=== PATIENT | male | born 1990 | race Caucasian/White ===

== ENCOUNTER 2016-08-03 21:31 | Emergency (ER) | payer OTHER ==
[2016-08-03] MEDS ORDERED: BUPIVACAIN-EPI 0.5%-1:200,000 30 ML VIAL SQ STA (21:34)
--- NOTE | 2016-08-03 21:36 | ED ---
ENT HPI - General Stated complaint: dental pain Time Seen by Provider: 08/03/16 21:31 Source: patient, EMS, RN notes reviewed Mode of arrival: EMS Limitations: no limitations - History of Present Illness Initial comments: 25-year-old male present emergency department via EMS for dental pain. Patient seen in emergency department 2 days ago for similar symptoms. Patient is stating that he cannot tolerate the pain last 3 hours. Patient was brought by EMS and which he was smoking a cigarette prior to being transported. Patient denies any fevers or chills. Patient states she's been taken without codeine with no relief. Patient has appointment on Thursday. No other complaints. No fevers no chills no trismus. - Related Data Home Medications Medication Instructions Recorded Confirmed Albuterol Inhaler [Ventolin Hfa 1 - 2 puff INHALATION RT-Q6H PRN 07/31/16 Inhaler] Budesonide/Formoterol Fumarate 2 puff INHALATION RT-BID 07/31/16 07/31/16 [Symbicort 160-4.5 Mcg Inhaler] Previous Rx's Medication Instructions Recorded Acetaminophen-Codeine 300-30mg 1 tab PO Q4H PRN #20 tablet 07/31/16 [Tylenol #3] Penicillin V Potassium [Pen Vee K] 500 mg PO QID #40 tab 07/31/16 Hydrocodone/Acetaminophen [[place] 1 tab PO Q6HR PRN #10 tab 08/03/16 5-325] Allergies Allergy/AdvReac Type Severity Reaction Status Date / Time blue dye Allergy Anaphylaxis Verified 08/03/16 21:38 ibuprofen [From Motrin] Allergy Unknown Verified 08/03/16 21:38 Review of Systems ROS Statement: Those systems with pertinent positive or pertinent negative responses have been documented in the HPI. ROS Other: All systems not noted in ROS Statement are negative. Past Medical History Past Medical History: Asthma, COPD, Seizure Disorder Additional Past Medical History / Comment(s): Degenerative Disk, uses a walker r /t back History of Any Multi-Drug Resistant Organisms: None Reported Past Surgical History: Orthopedic Surgery Past Psychological History: ADD/ADHD, Anxiety, Depression Smoking Status: Current every day smoker Past Alcohol Use History: None Reported Past Drug Use History: None Reported General Exam General appearance: alert, in no apparent distress Head exam: Present: atraumatic, normocephalic, normal inspection Eye exam: Present: normal appearance, PERRL, EOMI. Absent: scleral icterus, conjunctival injection, periorbital swelling ENT exam: Present: mucous membranes moist. Absent: normal oropharynx (Poor dentition edentulous, dental fracture #17) Neck exam: Present: normal inspection, full ROM. Absent: tenderness, meningismus, lymphadenopathy Respiratory exam: Present: normal lung sounds bilaterally. Absent: respiratory distress, wheezes, rales, rhonchi, stridor Cardiovascular Exam: Present: regular rate, normal rhythm, normal heart sounds. Absent: systolic murmur, diastolic murmur, rubs, gallop, clicks Course Vital Signs 08/03/16 21:36 Temperature 98.2 F Pulse Rate 72 Respiratory 18 Rate Blood Pressure 118/89 O2 Sat by Pulse 97 Oximetry Procedures - Procedures Initial comment: Dental block procedure left inferior alveolar block 2ml of 0.5% Marcaine with epinephrine was used to anesthetize area patient tolerated well no compilations Disposition Clinical Impression: Pain, dental, Dental caries Disposition: HOME SELF-CARE Condition: Stable Instructions: Toothache (ED) Additional Instructions: Please return to the Emergency Department if symptoms worsen or any other concerns. Prescriptions: Hydrocodone/Acetaminophen [[place] 5-325] 1 tab PO Q6HR PRN #10 tab PRN Reason: Pain Referrals: None,Stated [Primary Care Provider] - 1-2 days Time of Disposition: 21:56
[2016-08-03 21:38] VITALS: BP 118/89; PULSE 72; RESP 18; TEMP 98.2
[2016-08-03] MEDS ORDERED: HYDROcodone/APAP 5-325MG 1 EACH TAB PO STA (21:55)
== END 2016-08-03 22:32 | disposition home or self-care (01) ==
LOC: EC 21:31
DX: K02.9 Dental caries, unspecified (principal); J45.909 Unspecified asthma, uncomplicated; J44.9 Chronic obstructive pulmonary disease, unspecified; F17.200 Nicotine dependence, unspecified, uncomplicated; Z88.6 Allergy status to analgesic agent; Z91.048 Other nonmedicinal substance allergy status; Z79.899 Other long term (current) drug therapy
CPT/HCPCS: 64400; 99283

== ENCOUNTER 2016-10-12 13:47 | Emergency (ER) | payer OTHER ==
[2016-10-12 14:04] VITALS: BP 118/70; PULSE 98; RESP 18; TEMP 99.1
--- NOTE | 2016-10-12 14:18 | ED ---
ENT HPI - General Chief complaint: Dental/Oral Stated complaint: dental pain Time Seen by Provider: 10/12/16 14:06 Source: patient Mode of arrival: ambulatory - History of Present Illness Initial comments: 35-year-old male patient presents for complaints of right lower dental pain. Patient states that the tooth started bothering him 2 days ago. Patient does have extensive periodontal disease and did recently have numerous tooth extractions. Patient states that the pain is severe, makes it difficult to eat or drink, and makes it difficult to sleep. Patient has tried to take Tylenol but states that it does not work. Patient is ALLERGIC to ibuprofen. Denies any swelling to his face, swelling to his gums, fever, or chills. Patient denies any chest pain, back pain, shortness of breath, abdominal pain, nausea, vomiting, dizziness, weakness, constipation, diarrhea, or urinary symptoms. - Related Data Home Medications Medication Instructions Recorded Confirmed Albuterol Inhaler [Ventolin Hfa 1 - 2 puff INHALATION RT-Q6H PRN 07/31/16 Inhaler] Budesonide/Formoterol Fumarate 2 puff INHALATION RT-BID 07/31/16 08/03/16 [Symbicort 160-4.5 Mcg Inhaler] carBAMazepine [TEGretol] 200 mg PO DAILY 10/12/16 10/12/16 Previous Rx's Medication Instructions Recorded Hydrocodone/Acetaminophen [[place] 1 tab PO Q6HR PRN #15 tab 10/12/16 5-325] Penicillin V Potassium [Pen Vee K] 500 mg PO QID #40 tab 10/12/16 Allergies Allergy/AdvReac Type Severity Reaction Status Date / Time blue dye Allergy Anaphylaxis Verified 10/12/16 14:04 ibuprofen [From Motrin] Allergy Unknown Verified 10/12/16 14:04 Review of Systems ROS Statement: Those systems with pertinent positive or pertinent negative responses have been documented in the HPI. ROS Other: All systems not noted in ROS Statement are negative. Past Medical History Past Medical History: Asthma, COPD, Seizure Disorder Additional Past Medical History / Comment(s): Degenerative Disk, uses a walker r /t back History of Any Multi-Drug Resistant Organisms: None Reported Past Surgical History: Orthopedic Surgery Past Psychological History: ADD/ADHD, Anxiety, Depression Smoking Status: Current every day smoker Past Alcohol Use History: None Reported Past Drug Use History: None Reported General Exam Limitations: no limitations General appearance: alert, in no apparent distress Head exam: Present: atraumatic, normocephalic Eye exam: Present: normal appearance, PERRL, EOMI. Absent: scleral icterus, conjunctival injection, nystagmus, periorbital swelling Pupils: Present: normal accommodation ENT exam: Present: normal exam, normal oropharynx, mucous membranes moist, TM's normal bilaterally. Absent: mucous membranes dry Expanded Ear exam: Present: normal external inspection Teeth exam: Present: dental caries, dental tenderness # (32). Absent: fractured tooth #, gingival enlargement Neck exam: Present: normal inspection, full ROM. Absent: tenderness, meningismus, lymphadenopathy, thyromegaly Respiratory exam: Present: normal lung sounds bilaterally. Absent: respiratory distress, wheezes, rales, rhonchi, stridor Cardiovascular Exam: Present: regular rate, normal rhythm, normal heart sounds. Absent: bradycardia, tachycardia, irregular rhythm, systolic murmur, diastolic murmur, rubs, gallop, clicks GI/Abdominal exam: Present: soft, normal bowel sounds. Absent: distended, tenderness, guarding, rebound, rigid, diminished bowel sounds, hyperactive bowel sounds, hypoactive bowel sounds Neurological exam: Present: alert, oriented X3, CN II-XII intact Psychiatric exam: Present: normal affect, normal mood Skin exam: Present: warm, dry, intact Course Vital Signs 10/12/16 14:02 Temperature 99.1 F Pulse Rate 98 Respiratory 18 Rate Blood Pressure 118/70 O2 Sat by Pulse 98 Oximetry Medical Decision Making - Medical Decision Making 25-year-old male patient presents to emergency department today for complaints of right lower dental pain. Physical exam revealed extensive periodontal disease with dental caries to tooth #32. She'll be discharged home with a prescription for penicillin and [place] for pain control. Patient instructed to call dentist in the morning to make an appointment. Patient instructed to return for any new, worsening, or concerning symptoms. Patient verbalizes understanding and agrees with this plan. Disposition Clinical Impression: Pain, dental, Dental caries Disposition: HOME SELF-CARE Condition: Stable Instructions: Dental Caries (ED), Toothache (ED) Additional Instructions: Make a dentist appointment Thursday morning. Utilize pain medication prescription for severe pain. Return for any new, worsening, or concerning symptoms. Prescriptions: Hydrocodone/Acetaminophen [[place] 5-325] 1 tab PO Q6HR PRN #15 tab PRN Reason: Pain Penicillin V Potassium [Pen Vee K] 500 mg PO QID #40 tab Referrals: None,Stated [Primary Care Provider] - 1-2 days Time of Disposition: 14:20
== END 2016-10-12 14:40 | disposition home or self-care (01) ==
LOC: EC 13:47
DX: K02.9 Dental caries, unspecified (principal); J45.909 Unspecified asthma, uncomplicated; J44.9 Chronic obstructive pulmonary disease, unspecified; G40.909 Epilepsy, unspecified, not intractable, without status epilepticus; F41.9 Anxiety disorder, unspecified; F32.9 Major depressive disorder, single episode, unspecified; F17.200 Nicotine dependence, unspecified, uncomplicated; Z79.51 Long term (current) use of inhaled steroids; Z79.899 Other long term (current) drug therapy; Z91.048 Other nonmedicinal substance allergy status; Z88.6 Allergy status to analgesic agent
CPT/HCPCS: 99282

== ENCOUNTER 2016-12-03 23:49 | Emergency (ER) | payer OTHER ==
[2016-12-03 23:55] VITALS: BP 117/81; PULSE 85; RESP 16; TEMP 98.4
[2016-12-04] MEDS ORDERED: KETOROLAC 60 MG/2 ML VIAL IM STA (00:27)
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
[2016-12-04] MEDS ORDERED: CYCLOBENZAPRINE 10MG STARTER 3 TAB BTL PO STA (00:52)
--- NOTE | 2016-12-04 00:56 | XR ---
Exam: XR LEFT SHOULDER History: Pain. Comparison: 12/24/15. Technique: 3 views. Findings: No definite evidence for acute displaced fracture or dislocation. Question slight contour irregularity of the greater tuberosity on external rotation, similar to before. May be due to remote injury. Correlate for prior trauma. No significant arthritic or erosive changes. No soft tissue calcification. No aggressive appearing processes. Impression: No significant change.
== END 2016-12-04 01:03 | disposition home or self-care (01) ==
LOC: EC 23:49
DX: M25.512 Pain in left shoulder (principal); J45.909 Unspecified asthma, uncomplicated; J44.9 Chronic obstructive pulmonary disease, unspecified; G40.909 Epilepsy, unspecified, not intractable, without status epilepticus; F17.200 Nicotine dependence, unspecified, uncomplicated; Z79.51 Long term (current) use of inhaled steroids; Z79.899 Other long term (current) drug therapy; Z88.6 Allergy status to analgesic agent; Z91.09 Other allergy status, other than to drugs and biological substances; Z98.890 Other specified postprocedural states
CPT/HCPCS: 73030; 99283; 96372; J1885

== ENCOUNTER 2016-12-23 21:16 | Emergency (ER) | payer OTHER ==
[2016-12-23] MEDS ORDERED: ACETAMINOPHEN TAB 500 MG TAB PO STA (21:46)
--- NOTE | 2016-12-23 21:51 | ED ---
Upper Extremity HPI - General Chief Complaint: Extremity Injury, Upper Stated Complaint: left wrist injury Time Seen by Provider: 12/23/16 21:38 Source: patient, RN notes reviewed Mode of arrival: ambulatory Limitations: no limitations - History of Present Illness Initial Comments: Patient is a 26-year-old male presents to the emergency room for evaluation of left wrist pain. Patient states 2 nights ago he fell into a glass table and injured his hand/wrist. Patient states he's having pain at his distal radial area and over his thumb. Patient states it hurts to move his thumb. Patient states that it hurts move his wrist. Patient states he has broken the same wrist in the past. Patient denies any other injuries during incident. Patient states he has not been taking anything at home for pain. Place: home - Related Data Home Medications Medication Instructions Recorded Confirmed Albuterol Inhaler [Ventolin Hfa 1 - 2 puff INHALATION RT-Q6H PRN 07/31/16 Inhaler] Budesonide/Formoterol Fumarate 2 puff INHALATION RT-BID 07/31/16 10/12/16 [Symbicort 160-4.5 Mcg Inhaler] carBAMazepine [TEGretol] 200 mg PO DAILY 10/12/16 10/12/16 Previous Rx's Medication Instructions Recorded Hydrocodone/Acetaminophen [[place] 1 tab PO Q6HR PRN #15 tab 10/12/16 5-325] Penicillin V Potassium [Pen Vee K] 500 mg PO QID #40 tab 10/12/16 Cyclobenzaprine [Flexeril] 10 mg PO TID #20 tab 12/04/16 Acetaminophen with Codeine 1 tab PO Q4H PRN #12 tab 12/23/16 [Tylenol w/codeine #3] Allergies Allergy/AdvReac Type Severity Reaction Status Date / Time blue dye Allergy Anaphylaxis Verified 12/23/16 21:44 ibuprofen [From Motrin] Allergy Unknown Verified 12/23/16 21:44 Review of Systems ROS Statement: Those systems with pertinent positive or pertinent negative responses have been documented in the HPI. ROS Other: All systems not noted in ROS Statement are negative. Past Medical History Past Medical History: Asthma, COPD, Seizure Disorder Additional Past Medical History / Comment(s): Degenerative Disk, uses a walker r /t back History of Any Multi-Drug Resistant Organisms: None Reported Past Surgical History: Orthopedic Surgery Past Psychological History: ADD/ADHD, Anxiety, Depression Smoking Status: Current every day smoker Past Alcohol Use History: None Reported Past Drug Use History: None Reported General Exam - General Exam Comments Initial Comments: Sitting in exam room, no acute distress. Limitations: no limitations General appearance: alert, in no apparent distress Head exam: Present: atraumatic, normocephalic, normal inspection Eye exam: Present: normal appearance ENT exam: Present: normal exam Neck exam: Present: normal inspection Respiratory exam: Absent: respiratory distress Left Forearm Wrist exam: Present: tenderness (Tenderness on palpating over her distal radius), tenderness over anatomical snuff box. Absent: full ROM Hand Wrist exam: Present: tenderness (Tenderness on palpating over first metacarpal and base of thumb). Absent: full ROM Neuro motor exam: Present: thumb IP flexion intact, thumb adduction intact Vascular: Present: normal capillary refill (Capillary refill less than 2 seconds ), radial pulse (2+), ulnar pulse (2+) Back exam: Present: normal inspection Neurological exam: Present: alert, oriented X3, CN II-XII intact, normal gait Psychiatric exam: Present: normal affect, normal mood Skin exam: Present: warm, dry, intact, normal color. Absent: rash Course Vital Signs 12/23/16 12/23/16 21:41 22:28 Temperature 98.1 F 97.4 F L Pulse Rate 67 68 Respiratory 18 20 Rate Blood Pressure 123/79 124/78 O2 Sat by Pulse 98 99 Oximetry Procedures - Orthopedic Splinting/Casting Injury #1 Side: left Upper Extremity Injury Location: hand Upper Extremity Immobilizer: thumb spica (Short arm OCL thumb spica splint placed. 2 x 10". Neurovascular function assessed and intact.) Medical Decision Making - Medical Decision Making Patient is a 26-year-old male presents emergency room for evaluation of left wrist/hand pain. Left wrist/hand x-rays negative for any acute fractures or dislocations. Patient is having significant tenderness over the anatomical snuffbox. Patient placed in a thumb spica splint and advised to follow-up with transcription specialist for further evaluation. Patient states he understands everything that was discussed with him. Return parameters discussed. Case discussed with Dr. Celestin. - Radiology Data Radiology results: report reviewed, image reviewed Disposition Clinical Impression: Sprain of left hand Disposition: HOME SELF-CARE Condition: Good Instructions: Wrist Injury (ED), Suspected Fracture (ED) Additional Instructions: Do not get splint wet. Do not remove splint until follow-up with transcription specialist. Please follow-up with transcription specialist in 24-48 hours for reevaluation. If any new symptom arises or symptoms worsen, return to ER as soon as possible. Prescriptions: Acetaminophen with Codeine [Tylenol w/codeine #3] 1 tab PO Q4H PRN #12 tab PRN Reason: Pain Referrals: Yakov Srinivasan MD [REFERRING] - 1-2 days El Hernandez DO [Doctor of Osteopathic Medicine] - 1-2 days Time of Disposition: 22:12
--- NOTE | 2016-12-23 22:00 | XR ---
EXAMINATION TYPE: XR hand complete LT DATE OF EXAM: 12/23/2016 9:55 PM COMPARISON: NONE HISTORY: Pain TECHNIQUE: 3 views FINDINGS: I see no fracture nor dislocation. Metacarpals appear intact. Joint spaces appear normal. IMPRESSION: Negative left hand exam
--- NOTE | 2016-12-23 22:01 | XR ---
EXAMINATION TYPE: XR wrist complete LT DATE OF EXAM: 12/23/2016 9:55 PM COMPARISON: NONE HISTORY: Pain TECHNIQUE: 4 views FINDINGS: I see no fracture nor dislocation. Joint spaces are normal. Soft tissues appear normal. IMPRESSION: Normal left wrist
[2016-12-23 22:31] VITALS: BP 124/78; PULSE 68; RESP 20; TEMP 97.4
== END 2016-12-23 22:31 | disposition home or self-care (01) ==
LOC: EC 21:16
DX: S63.92XA Sprain of unspecified part of left wrist and hand, initial encounter (principal); J45.909 Unspecified asthma, uncomplicated; J44.9 Chronic obstructive pulmonary disease, unspecified; F17.200 Nicotine dependence, unspecified, uncomplicated; Z88.6 Allergy status to analgesic agent; Z91.048 Other nonmedicinal substance allergy status; Z79.899 Other long term (current) drug therapy; Z79.51 Long term (current) use of inhaled steroids; W19.XXXA Unspecified fall, initial encounter
CPT/HCPCS: 29125; 99283

== ENCOUNTER 2017-01-18 12:39 | Emergency (ER) | payer OTHER ==
[2017-01-18 12:47] VITALS: BP 137/74; PULSE 90; RESP 20; TEMP 98.8
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
[2017-01-18] MEDS ORDERED: ACET/COD 300 MG/30 MG STARTER PACK 6 TAB BTL PO STA (13:50)
[2017-01-18] MEDS ORDERED: Acetaminophen-Codeine 300-30mg TAB PO STA (14:51)
== END 2017-01-18 15:30 | disposition home or self-care (01) ==
LOC: EC 12:39
DX: S91.201A Unspecified open wound of right great toe with damage to nail, initial encounter (principal); G40.909 Epilepsy, unspecified, not intractable, without status epilepticus; F17.200 Nicotine dependence, unspecified, uncomplicated; Z79.899 Other long term (current) drug therapy; Z88.6 Allergy status to analgesic agent; Z91.09 Other allergy status, other than to drugs and biological substances; X58.XXXA Exposure to other specified factors, initial encounter; Y93.84 Activity, sleeping
CPT/HCPCS: 11730; 99283

== ENCOUNTER 2017-02-22 15:41 | Emergency (ER) | payer OTHER ==
[2017-02-22 16:13] VITALS: BP 115/76; PULSE 63; RESP 18; TEMP 99.4
--- NOTE | 2017-02-22 16:26 | ED ---
ENT HPI - General Chief complaint: Dental/Oral Stated complaint: right side dental pain Time Seen by Provider: 02/22/17 16:15 Source: patient, RN notes reviewed, old records reviewed Mode of arrival: ambulatory Limitations: no limitations - History of Present Illness Initial comments: 26-year-old male presents emergency room chief complaint of lower right dental pain for the past 3 days. He reports he's been told she's had an abscess and poor dentition before. He states that he has had a fever last night. Denies any recent antibiotic use but was seen in the emergency department month ago. Patient reports that he is ALLERGIC to Motrin as it causes him to have stomach issues and he has an ulcer. He denies any neck pain or ear pain. He reports that he has had no chest pain or shortness of breath or any other symptoms. Patient states he had have dental work done over the left lower teeth and plans to follow-up to have his right lower tooth completed as well. - Related Data Home Medications Medication Instructions Recorded Confirmed carBAMazepine [TEGretol] 200 mg PO BID 10/12/16 01/18/17 Previous Rx's Medication Instructions Recorded Acetaminophen-Codeine 300-30mg 1 tab PO Q6H PRN #15 tablet 02/22/17 [Tylenol #3] Penicillin V Potassium [Pen Vee K] 500 mg PO QID #40 tab 02/22/17 Allergies Allergy/AdvReac Type Severity Reaction Status Date / Time blue dye Allergy Anaphylaxis Verified 02/22/17 16:13 ibuprofen [From Motrin] Allergy Unknown Verified 02/22/17 16:13 Review of Systems ROS Statement: Those systems with pertinent positive or pertinent negative responses have been documented in the HPI. ROS Other: All systems not noted in ROS Statement are negative. Past Medical History Past Medical History: Asthma, COPD, Seizure Disorder Additional Past Medical History / Comment(s): Degenerative Disk, uses a walker r /t back History of Any Multi-Drug Resistant Organisms: None Reported Past Surgical History: Orthopedic Surgery Additional Past Surgical History / Comment(s): knee Past Psychological History: ADD/ADHD, Anxiety, Depression Smoking Status: Current every day smoker Past Alcohol Use History: None Reported Past Drug Use History: None Reported General Exam - General Exam Comments Initial Comments: 26-year-old male. No acute distress. Limitations: no limitations General appearance: alert, in no apparent distress Head exam: Present: atraumatic, normocephalic, normal inspection Eye exam: Present: normal appearance, PERRL, EOMI. Absent: scleral icterus, conjunctival injection, periorbital swelling ENT exam: Present: normal exam, mucous membranes moist. Absent: normal oropharynx (Patient has poor dentition. Evidence of teeth 19 317 are removed. Patient has multiple dental caries and erythema around tooth #31 with gum swelling. No pus noted.) Neck exam: Present: normal inspection. Absent: tenderness, meningismus, lymphadenopathy Respiratory exam: Present: normal lung sounds bilaterally. Absent: respiratory distress, wheezes, rales, rhonchi, stridor Cardiovascular Exam: Present: regular rate, normal rhythm, normal heart sounds. Absent: systolic murmur, diastolic murmur, rubs, gallop, clicks GI/Abdominal exam: Present: soft, normal bowel sounds. Absent: distended, tenderness, guarding, rebound, rigid Extremities exam: Present: normal inspection, full ROM, normal capillary refill. Absent: tenderness, pedal edema, joint swelling, calf tenderness Back exam: Present: normal inspection Neurological exam: Present: alert, oriented X3, CN II-XII intact Psychiatric exam: Present: normal affect, normal mood Skin exam: Present: warm, dry, intact, normal color. Absent: rash Course Vital Signs 02/22/17 16:10 Temperature 99.4 F Pulse Rate 63 Respiratory 18 Rate Blood Pressure 115/76 O2 Sat by Pulse 98 Oximetry Medical Decision Making - Medical Decision Making 26-year-old male presents emergency room chief complaint of lower right dental pain for the past 3 days. He reports he's been told she's had an abscess and poor dentition before. He states that he has had a fever last night. Denies any recent antibiotic use but was seen in the emergency department month ago. Patient reports that he is ALLERGIC to Motrin as it causes him to have stomach issues and he has an ulcer. He denies any neck pain or ear pain. He reports that he has had no chest pain or shortness of breath or any other symptoms. Patient does have significant erythema and dental caries around tooth #31. Discussed that he needs follow-up with dentist have it removed. Discussed taking Tylenol for pain. Patient will be discharged with Pen-Vee K and prescription for short course of pain medicine. Patient agrees to treatment plan will comply. Return parameters were discussed. Disposition Clinical Impression: Pain due to dental caries Disposition: HOME SELF-CARE Condition: Good Instructions: Dental Caries (ED) Additional Instructions: [facility] [email or web address], [place] [address] [phone] (existing clients only) For new clients: [phone] 1st consult: $50 (includes Xrays) Usually 30% less then private dentist for visits after. [employer] Have to pay $50 for Xrays anmd rest is covered. [phone] Prescriptions: Acetaminophen-Codeine 300-30mg [Tylenol #3] 1 tab PO Q6H PRN #15 tablet PRN Reason: Pain Penicillin V Potassium [Pen Vee K] 500 mg PO QID #40 tab Referrals: None,Stated [Primary Care Provider] - 1-2 days Time of Disposition: 16:25
== END 2017-02-22 16:48 | disposition home or self-care (01) ==
LOC: EC 15:41
DX: K02.9 Dental caries, unspecified (principal); G40.909 Epilepsy, unspecified, not intractable, without status epilepticus; F17.200 Nicotine dependence, unspecified, uncomplicated; Z88.6 Allergy status to analgesic agent; Z91.048 Other nonmedicinal substance allergy status; Z79.899 Other long term (current) drug therapy
CPT/HCPCS: 99283

== ENCOUNTER 2017-03-11 19:11 | Emergency (ER) | payer OTHER ==
[2017-03-11] MEDS ORDERED: HYDROcodone/APAP 5-325MG 1 EACH TAB PO STA (19:33)
[2017-03-11] MEDS ORDERED: METHOCARBAMOL 500 MG TAB PO STA (19:33)
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
[2017-03-11 20:56] VITALS: BP 132/88; PULSE 64; RESP 18; TEMP 98.9
== END 2017-03-11 20:54 | disposition home or self-care (01) ==
LOC: EC 19:11
DX: M62.838 Other muscle spasm (principal); G40.909 Epilepsy, unspecified, not intractable, without status epilepticus; F17.200 Nicotine dependence, unspecified, uncomplicated; Z79.899 Other long term (current) drug therapy; Z88.6 Allergy status to analgesic agent; Z91.048 Other nonmedicinal substance allergy status
CPT/HCPCS: 72050; 99283

== ENCOUNTER 2017-05-20 13:55 | Emergency (ER) | payer OTHER ==
[2017-05-20 14:08] VITALS: TEMP 98.2
--- NOTE | 2017-05-20 15:14 | ED ---
ENT HPI - General Chief complaint: Dental/Oral Stated complaint: Dental Time Seen by Provider: 05/20/17 14:52 Source: patient, RN notes reviewed Mode of arrival: ambulatory Limitations: no limitations - History of Present Illness Initial comments: This is a 26-year-old male who presents to the emergency Department with chief complaint of dental pain. Patient states that for the past 3 days he has had pain along the midline of lower gumline. Today pain has progressed to the right lower gumline. He states there is no drainage or discharge from this area. He states that lower right teeth are tender. Patient denies having a dentist. Denies fever, chills, chest pain, shortness of breath, abdominal pain, nausea or vomiting, constipation or diarrhea, dysuria or hematuria, numbness or tingling, headache or vision changes. - Related Data Home Medications Medication Instructions Recorded Confirmed carBAMazepine [TEGretol] 200 mg PO BID 10/12/16 05/20/17 Albuterol Inhaler [Ventolin Hfa 2 puff INHALATION RT-Q6H PRN 03/11/17 05/20/17 Inhaler] Budesonide/Formoterol Fumarate 2 puff INHALATION RT-BID 05/20/17 05/20/17 [Symbicort 160-4.5 Mcg Inhaler] Previous Rx's Medication Instructions Recorded Acetaminophen-Codeine 300-30mg 1 tab PO Q4H PRN #15 tablet 05/20/17 [Tylenol #3] Penicillin V Potassium [Pen Vee K] 500 mg PO QID 10 Days #40 tab 05/20/17 Allergies Allergy/AdvReac Type Severity Reaction Status Date / Time blue dye Allergy Rash/Hives Verified 05/20/17 14:51 ibuprofen [From Motrin] Allergy Nausea & Verified 05/20/17 14:51 Vomiting & Diarrhea Review of Systems ROS Statement: Those systems with pertinent positive or pertinent negative responses have been documented in the HPI. ROS Other: All systems not noted in ROS Statement are negative. Past Medical History Past Medical History: Asthma, COPD, Seizure Disorder Additional Past Medical History / Comment(s): Degenerative Disk, uses a walker r /t back History of Any Multi-Drug Resistant Organisms: None Reported Past Surgical History: Joint Replacement, Orthopedic Surgery Additional Past Surgical History / Comment(s): knee Past Psychological History: ADD/ADHD, Anxiety, Depression Smoking Status: Current every day smoker Past Alcohol Use History: None Reported Past Drug Use History: None Reported General Exam - General Exam Comments Initial Comments: General: Awake and alert, well-developed; in no apparent distress. HEENT: Head atraumatic, normocephalic. Pupils are equal, round and reactive to light. Extraocular movements intact. Oropharynx moist without exudate. Patient is missing tooth #30. Tooth #31 is tender to palpation. Gumline from tooth 23- 30 is mildly swollen, erythematous and tender to palpation. No fluctuance noted. Neck: Supple. Normal ROM. Cardiovascular: Regular rate and rhythm. No murmurs, rubs or gallops. Chest symmetrical. Respiratory: Lungs clear to auscultation bilaterally. No wheezes, rales or rhonchi. Normal respiratory effort with no use of accessory muscles. Skin: [place], warm and dry without rashes or lesions. Neurological: Alert and oriented x3. CN II-XII grossly intact. Speech is fluent and answers are appropriate. No focal neuro deficits. Psychiatric: Normal mood and affect. No overt signs of depression or anxiety noted. Limitations: no limitations Course Vital Signs 05/20/17 14:04 Temperature 98.2 F Pulse Rate 84 Respiratory 16 Rate Blood Pressure 132/72 O2 Sat by Pulse 98 Oximetry Medical Decision Making - Medical Decision Making This is a 18-year-old male presents emergency permit chief complaint dental pain. No evidence of abscess. Patient discharged home with a prescription for penicillin VK and Tylenol with codeine. He is in no acute distress at this time. Advised him to establish care with a dentist. Patient is in agreement to the plan voices understanding. All questions were answered. Disposition Clinical Impression: Pain, dental Disposition: HOME SELF-CARE Condition: Good Instructions: Dental Caries (ED), Toothache (ED) Additional Instructions: Please take medications as prescribed. Please follow up with a dentist. Please follow up with primary care provider within 1-2 days. Return to emergency department if symptoms should worsen or any concerns arise. Prescriptions: Acetaminophen-Codeine 300-30mg [Tylenol #3] 1 tab PO Q4H PRN #15 tablet PRN Reason: Pain Penicillin V Potassium [Pen Vee K] 500 mg PO QID 10 Days #40 tab Referrals: None,Stated [Primary Care Provider] - 1-2 days Time of Disposition: 15:32
[2017-05-20 15:41] VITALS: BP 122/72; PULSE 65; RESP 18
== END 2017-05-20 15:40 | disposition home or self-care (01) ==
LOC: EC 13:55
DX: K08.89 Other specified disorders of teeth and supporting structures (principal); J44.9 Chronic obstructive pulmonary disease, unspecified; G40.909 Epilepsy, unspecified, not intractable, without status epilepticus; F17.200 Nicotine dependence, unspecified, uncomplicated; Z79.51 Long term (current) use of inhaled steroids; Z79.899 Other long term (current) drug therapy; Z88.6 Allergy status to analgesic agent; Z91.048 Other nonmedicinal substance allergy status
CPT/HCPCS: 99282

== ENCOUNTER 2017-09-02 15:32 | Emergency (ER) | payer OTHER ==
[2017-09-02 15:39] VITALS: RESP 18
[2017-09-02] MEDS ORDERED: ACETAMINOPHEN IV (For NPO) 1,000 MG in EMPTY BAG 1 BAG IVPB STA (16:14)
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
--- NOTE | 2017-09-02 17:26 | XR ---
EXAMINATION TYPE: XR cervical spine trauma DATE OF EXAM: 09/02/2017 COMPARISON: 03/11/2017 HISTORY: Fell down the steps. Neck pain TECHNIQUE: Single view FINDINGS: Vertebra have normal spacing and alignment. Posterior elements appear intact. IMPRESSION: Negative limited cervical spine exam. No change.
--- NOTE | 2017-09-02 17:28 | XR ---
EXAMINATION TYPE: XR spine complete AP and Lat DATE OF EXAM: 09/02/2017 COMPARISON: NONE HISTORY: Fell down the steps. Neck pain back pain TECHNIQUE: 9 views FINDINGS: Thoracic lumbar and cervical vertebra have normal spacing and alignment. I see no compressi on fracture. There is no thoracic paraspinal mass. Posterior elements appear intact. The sacroiliac j oints appear normal. IMPRESSION: Negative complete spine exam.
--- NOTE | 2017-09-02 17:29 | XR ---
EXAMINATION TYPE: XR chest 1V DATE OF EXAM: 09/02/2017 COMPARISON: 03/23/2016 HISTORY: Chest pain TECHNIQUE: Single frontal view of the chest is obtained. FINDINGS: Heart and mediastinum appear normal. Lungs are clear. Diaphragm is normal. Bony thorax darnell ears normal. IMPRESSION: Normal chest. No change.
--- NOTE | 2017-09-02 17:30 | XR ---
EXAMINATION TYPE: XR pelvis AP view DATE OF EXAM: 09/02/2017 COMPARISON: NONE HISTORY: Pain TECHNIQUE: Single view FINDINGS: Pelvic ring is intact. Proximal femurs and hip joints appear intact. Sacroiliac joints appe ar normal. IMPRESSION: Normal pelvis
[2017-09-02 18:14] VITALS: BP 124/75; PULSE 65; TEMP 97.8
== END 2017-09-02 18:13 | disposition home or self-care (01) ==
LOC: EC 15:32
DX: S13.9XXA Sprain of joints and ligaments of unspecified parts of neck, initial encounter (principal); S30.0XXA Contusion of lower back and pelvis, initial encounter; R40.2412 Glasgow coma scale score 13-15, at arrival to emergency department; G40.909 Epilepsy, unspecified, not intractable, without status epilepticus; F17.200 Nicotine dependence, unspecified, uncomplicated; Z79.899 Other long term (current) drug therapy; Z88.6 Allergy status to analgesic agent; Z91.048 Other nonmedicinal substance allergy status; W00.1XXA Fall from stairs and steps due to ice and snow, initial encounter; Y93.89 Activity, other specified; Y92.008 Other place in unspecified non-institutional (private) residence as the place of occurrence of the external cause
CPT/HCPCS: 99284; 72050; 72170; 72082; 71045; J0131

== ENCOUNTER 2017-10-21 21:11 | Emergency (ER) | payer OTHER ==
[2017-10-21 21:17] VITALS: RESP 18
--- NOTE | 2017-10-21 21:33 | ED ---
Psych HPI - General Chief Complaint: Psychiatric Symptoms Stated Complaint: Mental Health Time Seen by Provider: 10/21/17 21:19 Source: patient, police, EMS Mode of arrival: EMS - History of Present Illness Initial Comments: Is a 26-year-old male with a history of diabetes and depression who presents emergency department for worsening depression and suicidal thoughts. The patient recently broke up with his fiance a couple of months ago. He found out today that his fiance was dating his best friend. He became very sad and made some suicidal comments to his family who called police. The police brought him in. The patient currently states that he feels improved. States these thoughts that he's had before are no longer present. He states that he wants to get back on medication for his depression and wants to get set up with [facility] which she has been involved with before. These came in today asking for some help and resources. He does admit to drinking alcohol today however no other drug use. No other acute complaints. - Related Data Home Medications Medication Instructions Recorded Confirmed Albuterol Inhaler [Ventolin Hfa 1 - 2 puff INHALATION RT-Q6H PRN 10/21/17 Inhaler] Budesonide/Formoterol Fumarate 2 puff INHALATION RT-BID 10/21/17 10/21/17 [Symbicort 160-4.5 Mcg Inhaler] carBAMazepine [TEGretol] 200 mg PO Q12H 10/21/17 10/21/17 Allergies Allergy/AdvReac Type Severity Reaction Status Date / Time blue dye Allergy Rash/Hives Verified 10/21/17 21:58 ibuprofen [From Motrin] Allergy Nausea & Verified 10/21/17 21:58 Vomiting & Diarrhea Review of Systems ROS Statement: Those systems with pertinent positive or pertinent negative responses have been documented in the HPI. ROS Other: All systems not noted in ROS Statement are negative. Past Medical History Past Medical History: Asthma, COPD, Diabetes Mellitus, Seizure Disorder Additional Past Medical History / Comment(s): Degenerative Disk, uses a walker r /t back History of Any Multi-Drug Resistant Organisms: None Reported Past Surgical History: Joint Replacement, Orthopedic Surgery Additional Past Surgical History / Comment(s): knee Past Psychological History: ADD/ADHD, Anxiety, Depression Smoking Status: Current every day smoker Past Alcohol Use History: Occasional Past Drug Use History: Marijuana General Exam - General Exam Comments Initial Comments: Constitutional: Awake alert Appears comfortable Head: Normocephalic atraumatic Eyes: no conjunctival injection No scleral icterus EOMI Neck: No JVD Supple Heart: Regular rate rhythm normal S1-S2 no murmurs Lungs: Clear to auscultation bilaterally No wheezing No rales Abdomen: Soft nondistended nontender Extremities: Non edematous DP pulses intact Radial pulses intact Neuro: A&Ox3 No focal neurologic deficits Psych: Depressed. No current suicidal thoughts Limitations: no limitations Course Vital Signs 10/21/17 21:15 Temperature 98.6 F Pulse Rate 88 Respiratory 18 Rate Blood Pressure 135/80 O2 Sat by Pulse 98 Oximetry Medical Decision Making - Medical Decision Making Is a 26-year-old male who presents emergency department for depression. He was evaluated by EPS who did not feel that he required inpatient treatment. I agree with this. They set him up with [facility] for follow-up. The patient was happy about this. He will get further treatment through them. Patient is cleared for discharge at this time. - Lab Data Lab Results 10/21/17 Range/Units 22:56 Urine Opiates Screen Not Detected (NotDetected) Ur Oxycodone Screen Not Detected (NotDetected) Urine Methadone Screen Not Detected (NotDetected) Ur Propoxyphene Screen Not Detected (NotDetected) Ur Barbiturates Screen Not Detected (NotDetected) U Tricyclic Antidepress Not Detected (NotDetected) Ur Phencyclidine Scrn Not Detected (NotDetected) Ur Amphetamines Screen Not Detected (NotDetected) U Methamphetamines Scrn Not Detected (NotDetected) U Benzodiazepines Scrn Not Detected (NotDetected) Urine Cocaine Screen Not Detected (NotDetected) U Marijuana (THC) Screen Detected H (NotDetected) Disposition Clinical Impression: Depression Disposition: HOME SELF-CARE Condition: Stable Instructions: Depression (ED) Referrals: None,Stated [Primary Care Provider] - 1-2 days
--- NOTE | 2017-10-21 22:15 | XR ---
EXAMINATION TYPE: XR hand limited LT DATE OF EXAM: 10/21/2017 COMPARISON: 12/23/2016 HISTORY: Pain TECHNIQUE: 2 views FINDINGS: I see no fracture nor dislocation. Metacarpals are intact. Joint spaces are fairly normal. IMPRESSION: Negative left hand exam. No change.
[2017-10-21 23:16] LABS: Amphetamine Screen,Urine Not Detected (NotDetected); Barbiturate Screen,Urine Not Detected (NotDetected); Benzodiazepines Screen,Urine Not Detected (NotDetected); Cocaine Screen,Urine Not Detected (NotDetected); Methadone Screen, Urine Not Detected (NotDetected); Opiate Screen,Urine Not Detected (NotDetected); Oxycodone Screen, Urine Not Detected (NotDetected); Phencyclidine Screen,Urine Not Detected (NotDetected); Tricyclic Antidepressant,Urine Not Detected (NotDetected); Urn Cannabinoid Scrn Detected (NotDetected)
[2017-10-21] MEDS ORDERED: carBAMazepine 200 MG TAB PO STA (23:33)
[2017-10-22 02:04] VITALS: BP 120/61; PULSE 85; TEMP 97.6
== END 2017-10-22 02:04 | disposition home or self-care (01) ==
LOC: EC 21:11
DX: F32.9 Major depressive disorder, single episode, unspecified (principal); R45.851 Suicidal ideations; G40.909 Epilepsy, unspecified, not intractable, without status epilepticus; J44.9 Chronic obstructive pulmonary disease, unspecified; F17.200 Nicotine dependence, unspecified, uncomplicated; Z79.51 Long term (current) use of inhaled steroids; Z79.899 Other long term (current) drug therapy; Z88.6 Allergy status to analgesic agent; Z91.041 Radiographic dye allergy status
CPT/HCPCS: 80306; 82075; 99284; 99285

== ENCOUNTER 2017-11-16 22:22 | Emergency (ER) | payer OTHER ==
[2017-11-16 22:29] VITALS: RESP 18; TEMP 98.3
[2017-11-16] MEDS ORDERED: diphenhydrAMINE 50 MG/ML 1 ML VIAL IVP STA (23:04)
[2017-11-16] MEDS ORDERED: METOCLOPRAMIDE 5 MG/ML 2 ML VIAL IVP STA (23:04)
[2017-11-16] MEDS ORDERED: KETOROLAC 30 MG/ML 1 ML VIAL IVP STA (23:04)
[2017-11-16] MEDS ORDERED: SODIUM CHLORIDE 0.9% 1,000 ML IV STA (23:04)
[2017-11-17 02:02] VITALS: BP 104/60; PULSE 58
--- NOTE | 2017-11-17 02:08 | ED ---
Headache HPI - General Chief Complaint: Headache Stated Complaint: MIGRAINE,POSS SEIZURE Time Seen by Provider: 11/16/17 22:43 Source: RN notes reviewed Mode of arrival: ambulatory Limitations: no limitations - History of Present Illness Initial Comments: This is a 26-year-old male who presents to the emergency department with chief complaint of migraine. Patient states that he developed a migraine this morning. He states that it involves his whole head and is throbbing in nature. Denies any falls, injuries or trauma. States the headache is made worse with lights. Admits to associated nausea. He states that he was walking to the emergency department and felt like he might have a seizure and called EMS and was transported to the emergency department via EMS. Denies actually having a seizure. Patient states that he has had migraines in the past. Denies fever, chills, chest pain, shortness of breath, abdominal pain, vomiting, constipation or diarrhea, dysuria or hematuria, numbness or tingling, or vision changes. - Related Data Home Medications Medication Instructions Recorded Confirmed Albuterol Inhaler [Ventolin Hfa 1 - 2 puff INHALATION RT-Q6H PRN 10/21/17 Inhaler] Budesonide/Formoterol Fumarate 2 puff INHALATION RT-BID 10/21/17 11/16/17 [Symbicort 160-4.5 Mcg Inhaler] carBAMazepine [TEGretol] 200 mg PO Q12H 10/21/17 11/16/17 Allergies Allergy/AdvReac Type Severity Reaction Status Date / Time blue dye Allergy Rash/Hives Verified 11/16/17 22:46 ibuprofen [From Motrin] Allergy Nausea & Verified 11/16/17 22:46 Vomiting & Diarrhea Review of Systems ROS Statement: Those systems with pertinent positive or pertinent negative responses have been documented in the HPI. ROS Other: All systems not noted in ROS Statement are negative. Past Medical History Past Medical History: Asthma, COPD, Diabetes Mellitus, Seizure Disorder Additional Past Medical History / Comment(s): Degenerative Disk, uses a walker r /t back History of Any Multi-Drug Resistant Organisms: None Reported Past Surgical History: Joint Replacement, Orthopedic Surgery Additional Past Surgical History / Comment(s): knee Past Psychological History: ADD/ADHD, Anxiety, Depression Smoking Status: Current every day smoker Past Alcohol Use History: Occasional Past Drug Use History: Marijuana General Exam - General Exam Comments Initial Comments: General: Awake and alert, well-developed; in no apparent distress. HEENT: Head atraumatic, normocephalic. Pupils are equal, round and reactive to light. Extraocular movements intact. Oropharynx moist without erythema or exudate. Neck: Supple. Normal ROM. Cardiovascular: Regular rate and rhythm. No murmurs, rubs or gallops. Chest symmetrical. Respiratory: Lungs clear to auscultation bilaterally. No wheezes, rales or rhonchi. Normal respiratory effort with no use of accessory muscles. Musculoskeletal: Normal ROM, no tenderness bilateral upper and lower extremities. Ambulating normally. Skin: [place], warm and dry without rashes or lesions. Neurological: Alert and oriented x3. CN II-XII grossly intact. Speech is fluent and answers are appropriate. No focal neuro deficits. Psychiatric: Normal mood and affect. No overt signs of depression or anxiety noted. Limitations: no limitations Course Vital Signs 11/16/17 11/17/17 22:25 02:01 Temperature 98.3 F Pulse Rate 65 58 L Respiratory 18 18 Rate Blood Pressure 132/73 104/60 O2 Sat by Pulse 70 L 98 Oximetry Medical Decision Making - Medical Decision Making 26-year-old male who presents to the emergency department with chief complaint of migraine. Patient does report a history of migraines. Denies any recent injuries, falls or trauma. Denies any seizure activity. Patient given headache cocktail and antiemetics while in the emergency department. He states he is feeling much better and wishes to be discharged home. He is in no acute distress. All questions answered. Disposition Clinical Impression: Acute headache Disposition: HOME SELF-CARE Condition: Good Instructions: Acute Headache (ED) Additional Instructions: Please follow up with primary care provider within 1-2 days. Return to emergency department if symptoms should worsen or any concerns arise. Is patient prescribed a controlled substance at discharge?: No Referrals: None,Stated [Primary Care Provider] - 1-2 days Time of Disposition: 02:08
== END 2017-11-17 02:26 | disposition home or self-care (01) ==
LOC: EC 22:22
DX: R51 Headache (principal); R11.0 Nausea; J44.9 Chronic obstructive pulmonary disease, unspecified; G40.909 Epilepsy, unspecified, not intractable, without status epilepticus; F17.200 Nicotine dependence, unspecified, uncomplicated; Z86.69 Personal history of other diseases of the nervous system and sense organs; Z88.6 Allergy status to analgesic agent; Z91.041 Radiographic dye allergy status; Z79.51 Long term (current) use of inhaled steroids; Z79.899 Other long term (current) drug therapy
CPT/HCPCS: 99284; 96374; 96375 ×2; 96361 ×3; J1200; J2765; J1885

== ENCOUNTER 2017-12-09 15:49 | Emergency (ER) | payer OTHER ==
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
[2017-12-09 16:14] VITALS: PULSE 79; RESP 16
--- NOTE | 2017-12-09 16:27 | XR ---
EXAMINATION TYPE: XR forearm LT DATE OF EXAM: 12/09/2017 CLINICAL HISTORY: Pain after injury. TECHNIQUE: Two views of the left forearm are obtained. COMPARISON: None. FINDINGS: There is no acute fracture or dislocation seen in the left radius or ulna. The left elbow and wrist joints appear within normal limits. The overlying soft tissue appears within normal limit s. IMPRESSION: There is no acute fracture or dislocation seen in the left radius or ulna.
[2017-12-09 17:39] VITALS: BP 136/70; TEMP 97
== END 2017-12-09 17:37 | disposition home or self-care (01) ==
LOC: EC 15:49
DX: S50.12XA Contusion of left forearm, initial encounter (principal); J44.9 Chronic obstructive pulmonary disease, unspecified; G40.909 Epilepsy, unspecified, not intractable, without status epilepticus; F32.9 Major depressive disorder, single episode, unspecified; F17.200 Nicotine dependence, unspecified, uncomplicated; Z79.51 Long term (current) use of inhaled steroids; Z79.899 Other long term (current) drug therapy; Z88.6 Allergy status to analgesic agent; Z91.048 Other nonmedicinal substance allergy status; Y04.0XXA Assault by unarmed brawl or fight, initial encounter; Y92.29 Other specified public building as the place of occurrence of the external cause
CPT/HCPCS: 99285

== ENCOUNTER 2018-01-02 20:41 | Emergency (ER) | payer OTHER ==
[2018-01-02 20:47] VITALS: RESP 18
[2018-01-02] MEDS ORDERED: SODIUM CHLORIDE 0.9% 1,000 ML IV STA (21:05)
[2018-01-02] MEDS ORDERED: KETOROLAC 30 MG/ML 1 ML VIAL IVP STA (21:05)
[2018-01-02] MEDS ORDERED: diphenhydrAMINE 50 MG/ML 1 ML VIAL IVP STA (21:05)
[2018-01-02] MEDS ORDERED: METOCLOPRAMIDE 5 MG/ML 2 ML VIAL IVP STA (21:05)
--- NOTE | 2018-01-02 21:08 | ED ---
Headache HPI - General Chief Complaint: Headache Stated Complaint: Migraine Time Seen by Provider: 01/02/18 20:46 Mode of arrival: EMS Limitations: no limitations - History of Present Illness Initial Comments: 27-year-old male patient presents to the emergency department today for evaluation of migraine headache. Patient states that the headache started early this morning. States that the pain encompasses the entire head but is worse in the back. He states that the pain is throbbing. States he is sensitive to light however denies any sound sensitivity. States he is having some mild nausea but has had no vomiting. Denies any blurred or double vision. Denies any numbness, tingling, dizziness, or weakness. Patient states he has had migraine headaches in the past. States they have felt similar to this. States he did take Excedrin today without relief. Denies any recent head injury. Patient denies any recent rash, fever, chills, shortness breath, chest pain, abdominal pain, diarrhea, constipation, back pain, hematuria, dysuria, urinary urgency, urinary frequency, or any other complaints. - Related Data Home Medications Medication Instructions Recorded Confirmed Albuterol Inhaler [Ventolin Hfa 1 - 2 puff INHALATION RT-Q6H PRN 10/21/17 Inhaler] Budesonide/Formoterol Fumarate 2 puff INHALATION RT-BID 10/21/17 01/02/18 [Symbicort 160-4.5 Mcg Inhaler] carBAMazepine [TEGretol] 200 mg PO Q12H 10/21/17 01/02/18 Allergies Allergy/AdvReac Type Severity Reaction Status Date / Time blue dye Allergy Rash/Hives Verified 01/02/18 20:47 ibuprofen [From Motrin] Allergy Nausea & Verified 01/02/18 20:47 Vomiting & Diarrhea Review of Systems ROS Statement: Those systems with pertinent positive or pertinent negative responses have been documented in the HPI. ROS Other: All systems not noted in ROS Statement are negative. Past Medical History Past Medical History: Asthma, COPD, Diabetes Mellitus, Seizure Disorder Additional Past Medical History / Comment(s): Degenerative Disk, uses a walker r /t back History of Any Multi-Drug Resistant Organisms: None Reported Past Surgical History: Joint Replacement, Orthopedic Surgery Additional Past Surgical History / Comment(s): knee Past Psychological History: ADD/ADHD, Anxiety, Depression Smoking Status: Current every day smoker Past Alcohol Use History: Occasional Past Drug Use History: Marijuana General Exam Limitations: no limitations General appearance: alert, in no apparent distress, other (This is a well- developed, well-nourished adult male patient in no acute distress. Vital signs upon presentation are temperature 98.6F, pulse 56, respirations 18, blood pressure 120/79, pulse ox 98% on room air.) Head exam: Present: atraumatic, normocephalic, normal inspection Eye exam: Present: normal appearance, PERRL, EOMI. Absent: scleral icterus, conjunctival injection, nystagmus, periorbital swelling ENT exam: Present: normal exam, normal oropharynx, mucous membranes moist Respiratory exam: Present: normal lung sounds bilaterally. Absent: respiratory distress, wheezes, rales, rhonchi, stridor Cardiovascular Exam: Present: regular rate, normal rhythm, normal heart sounds. Absent: systolic murmur, diastolic murmur, rubs, gallop, clicks GI/Abdominal exam: Present: soft, normal bowel sounds. Absent: distended, tenderness, guarding, rebound, rigid Neurological exam: Present: alert, oriented X3, CN II-XII intact, other ( Strength in all 4 extremities is 5/5.) Psychiatric exam: Present: normal affect, normal mood Skin exam: Present: warm, dry, intact, normal color. Absent: rash Course Vital Signs 01/02/18 01/02/18 20:44 23:18 Temperature 98.6 F 98.0 F Pulse Rate 56 L 55 L Respiratory 18 18 Rate Blood Pressure 120/79 114/59 O2 Sat by Pulse 98 96 Oximetry Medical Decision Making - Medical Decision Making 27-year-old male patient presented to the emergency department today for evaluation of migraine headache. Patient has history of migraine headaches. States his symptoms are typical for his usual migraine pattern. Physical examination is unremarkable. Patient is neurologically intact. We did administer IV fluids, Reglan, Toradol, and Benadryl. Patient states his headache is completely resolved upon reevaluation. Patient be discharged home to follow-up with neurology for further evaluation. Return parameters discussed in detail. He verbalizes understanding and agrees with this plan. Disposition Clinical Impression: Migraine headache Disposition: HOME SELF-CARE Condition: Good Instructions: Migraine Headache (ED) Additional Instructions: Increase fluids. Rest. Follow-up with neurology for further evaluation. Return here immediately for any new, worsening, or concerning symptoms. Is patient prescribed a controlled substance at d/c from ED?: No Referrals: [facility]an [place] [Primary Care Provider] - 1-2 days Odalis Sherwood MD [STAFF PHYSICIAN] - 1-2 days Time of Disposition: 23:13
[2018-01-02 23:22] VITALS: BP 114/59; PULSE 55; TEMP 98
== END 2018-01-02 23:21 | disposition home or self-care (01) ==
LOC: EC 20:41
DX: G43.909 Migraine, unspecified, not intractable, without status migrainosus (principal); J44.9 Chronic obstructive pulmonary disease, unspecified; G40.909 Epilepsy, unspecified, not intractable, without status epilepticus; F17.200 Nicotine dependence, unspecified, uncomplicated; Z79.51 Long term (current) use of inhaled steroids; Z79.899 Other long term (current) drug therapy; Z91.048 Other nonmedicinal substance allergy status; Z88.6 Allergy status to analgesic agent
CPT/HCPCS: 99283; 96374; 96375 ×2; 96361; J1200; J2765; J1885

== ENCOUNTER 2018-07-16 17:24 | Emergency (ER) | payer OTHER ==
[2018-07-16 18:10] VITALS: PULSE 89
[2018-07-16] MEDS ORDERED: AMOXICILLIN 500MG STARTER PACK 3 CAP BTL PO STA (19:01)
--- NOTE | 2018-07-16 19:03 | ED ---
ENT HPI - General Chief complaint: ENT Stated complaint: poss ear infection Time Seen by Provider: 07/16/18 18:26 Source: patient, RN notes reviewed, old records reviewed Mode of arrival: ambulatory Limitations: no limitations - History of Present Illness Initial comments: 22 year old male with L ear pain one week. Patient has been taking OTC medication with little relief. Patient reports history of chronic left ear infection. No recent abx. Denies fever, chills, headache, nausea, vomiting, dizziness, chest pain, SOB, diarrhea, paresthesia, dysuria. - Related Data Home Medications Medication Instructions Recorded Confirmed Albuterol Inhaler [Ventolin Hfa 1 - 2 puff INHALATION RT-Q6H PRN 10/21/17 Inhaler] Budesonide/Formoterol Fumarate 2 puff INHALATION RT-BID 10/21/17 01/02/18 [Symbicort 160-4.5 Mcg Inhaler] carBAMazepine [TEGretol] 200 mg PO Q12H 10/21/17 01/02/18 Previous Rx's Medication Instructions Recorded Amoxicillin 500 mg PO TID #21 capsule 07/16/18 Loratadine-Pseudoeph 10-240 mg 1 each PO DAILY #12 tab 07/16/18 [Claritin-D 24 Hr] Allergies Allergy/AdvReac Type Severity Reaction Status Date / Time blue dye Allergy Rash/Hives Verified 07/16/18 18:10 ibuprofen [From Motrin] Allergy Nausea & Verified 07/16/18 18:10 Vomiting & Diarrhea Review of Systems ROS Statement: Those systems with pertinent positive or pertinent negative responses have been documented in the HPI. ROS Other: All systems not noted in ROS Statement are negative. Past Medical History Past Medical History: Asthma, COPD, Diabetes Mellitus, Seizure Disorder Additional Past Medical History / Comment(s): Degenerative Disk, uses a walker r /t back History of Any Multi-Drug Resistant Organisms: None Reported Past Surgical History: Joint Replacement, Orthopedic Surgery Additional Past Surgical History / Comment(s): knee Past Psychological History: ADD/ADHD, Anxiety, Depression Smoking Status: Current every day smoker Past Alcohol Use History: Occasional Past Drug Use History: Marijuana General Exam - General Exam Comments Initial Comments: Well appearing 27 year old male, no distress. Limitations: no limitations General appearance: alert, in no apparent distress Head exam: Present: atraumatic, normocephalic, normal inspection Eye exam: Present: normal appearance, PERRL, EOMI. Absent: scleral icterus, conjunctival injection, periorbital swelling ENT exam: Present: normal exam, mucous membranes moist. Absent: normal oropharynx, TM's normal bilaterally (L TM erythematous bulging) Neck exam: Present: normal inspection. Absent: tenderness, meningismus, lymphadenopathy Respiratory exam: Present: normal lung sounds bilaterally. Absent: respiratory distress, wheezes, rales, rhonchi, stridor Cardiovascular Exam: Present: regular rate, normal rhythm, normal heart sounds. Absent: systolic murmur, diastolic murmur, rubs, gallop, clicks Back exam: Present: normal inspection Neurological exam: Present: alert, oriented X3, CN II-XII intact Psychiatric exam: Present: normal affect, normal mood Course Vital Signs 07/16/18 07/16/18 18:08 19:10 Temperature 98.2 F 98.8 F Pulse Rate 89 Respiratory 18 16 Rate Blood Pressure 110/74 109/71 O2 Sat by Pulse 97 Oximetry Medical Decision Making - Medical Decision Making 27 yea rold male with Left otitis media for one week. Will DC patient with amoxicilllin and sudafed. Discussed return parameters and ent follow up. Disposition Clinical Impression: Otitis media Disposition: HOME SELF-CARE Condition: Good Instructions: Earache (ED) Additional Instructions: Is advised to close follow-up up with primary care physician. Return to emergency department if any alarming signs or symptoms occur. Prescriptions: Amoxicillin 500 mg PO TID #21 capsule Loratadine-Pseudoeph 10-240 mg [Claritin-D 24 Hr] 1 each PO DAILY #12 tab Is patient prescribed a controlled substance at d/c from ED?: No Referrals: None,Stated [Primary Care Provider] - 1-2 days Sheri Mckenzie MD [STAFF PHYSICIAN] - 1-2 days Time of Disposition: 19:02
[2018-07-16 19:14] VITALS: BP 109/71; RESP 16; TEMP 98.8
== END 2018-07-16 19:10 | disposition home or self-care (01) ==
LOC: EC 17:24
DX: H66.92 Otitis media, unspecified, left ear (principal); G40.909 Epilepsy, unspecified, not intractable, without status epilepticus; J44.9 Chronic obstructive pulmonary disease, unspecified; F32.9 Major depressive disorder, single episode, unspecified; F41.9 Anxiety disorder, unspecified; F17.200 Nicotine dependence, unspecified, uncomplicated; Z88.6 Allergy status to analgesic agent; Z91.048 Other nonmedicinal substance allergy status; Z79.51 Long term (current) use of inhaled steroids; Z79.899 Other long term (current) drug therapy
CPT/HCPCS: 99283

== ENCOUNTER 2019-10-05 19:41 | Emergency (ER) | payer OTHER ==
[2019-10-05 19:47] VITALS: RESP 16
[2019-10-05] MEDS ORDERED: MORPHINE SULFATE 4 MG/ML SYRINGE IVP STA (20:02)
--- NOTE | 2019-10-05 20:02 | ED ---
Abdominal Pain HPI - General Chief Complaint: Abdominal Pain Stated Complaint: Bump on Chest Time Seen by Provider: 10/05/19 19:44 Source: patient Mode of arrival: ambulatory Limitations: no limitations - History of Present Illness Initial Comments: Patient is a 28-year-old male presenting to emergency Department via EMS for chief complaint of a bump on her chest. Patient states he woke up this morning and noticed swelling near his xiphoid process. Patient states the pain is exacerbated when he standing and bending over. States the pain is sharp in nature and not related to by mouth intake. Denies any radiation of the pain. States there was initial protrusion which gradually decreased in size as he lay down on the recliner. Denies history of hernias. Denies any nausea, vomiting, diarrhea or constipation. Does report some shortness of breath with full inspiration. States the protrusion is not visible currently. Denies any dyspnea Or shortness of breath. - Related Data Home Medications Medication Instructions Recorded Confirmed Albuterol Inhaler [Ventolin Hfa 1 - 2 puff INHALATION RT-Q6H PRN 10/21/17 01/02/18 Inhaler] Budesonide/Formoterol Fumarate 2 puff INHALATION RT-BID 10/21/17 01/02/18 [Symbicort 160-4.5 Mcg Inhaler] carBAMazepine [TEGretol] 200 mg PO Q12H 10/21/17 01/02/18 Previous Rx's Medication Instructions Recorded Amoxicillin 500 mg PO TID #21 capsule 07/16/18 Loratadine-Pseudoeph 10-240 mg 1 each PO DAILY #12 tab 07/16/18 [Claritin-D 24 Hr] Allergies Allergy/AdvReac Type Severity Reaction Status Date / Time blue dye Allergy Rash/Hives Verified 10/05/19 19:45 ibuprofen [From Motrin] Allergy Nausea & Verified 10/05/19 19:45 Vomiting & Diarrhea Review of Systems ROS Statement: Those systems with pertinent positive or pertinent negative responses have been documented in the HPI. ROS Other: All systems not noted in ROS Statement are negative. Past Medical History Past Medical History: Asthma, COPD, Diabetes Mellitus, Seizure Disorder Additional Past Medical History / Comment(s): Degenerative Disk, uses a walker r/t back History of Any Multi-Drug Resistant Organisms: None Reported Past Surgical History: Joint Replacement, Orthopedic Surgery Additional Past Surgical History / Comment(s): knee Past Psychological History: ADD/ADHD, Anxiety, Depression Smoking Status: Current every day smoker Past Alcohol Use History: Occasional Past Drug Use History: Marijuana General Exam Limitations: no limitations General appearance: alert, in no apparent distress Head exam: Present: atraumatic, normocephalic, normal inspection Eye exam: Present: normal appearance Pupils: Present: normal accommodation ENT exam: Present: normal exam, normal oropharynx, mucous membranes moist, TM's normal bilaterally, normal external ear exam Neck exam: Present: normal inspection, full ROM Respiratory exam: Present: normal lung sounds bilaterally, chest wall tenderness (Tenderness near his xiphoid process. No obvious protrusions noted. No signs of any ventral hernias.) Cardiovascular Exam: Present: regular rate, normal rhythm, normal heart sounds GI/Abdominal exam: Present: soft, tenderness (Epigastric region). Absent: distended, guarding Extremities exam: Present: normal inspection, full ROM Back exam: Present: normal inspection, full ROM. Absent: tenderness Neurological exam: Present: alert, oriented X3 Psychiatric exam: Present: normal affect, normal mood Skin exam: Present: warm, dry, intact, normal color Course Vital Signs 10/05/19 10/05/19 19:45 21:39 Temperature 100.2 F H 98.1 F Pulse Rate 81 64 Respiratory 16 16 Rate Blood Pressure 126/86 118/71 O2 Sat by Pulse 97 97 Oximetry Medical Decision Making - Medical Decision Making patient is a 28-year-old male presenting to emergency Department with a chief complaint of bump on the chest. Patient brought to ED via EMS. Physical exam patient did have some tenderness near the xiphoid process. States it is exacerbated with standing and bending over. Patient didn't attempt to do that in the ED, no protrusion was evident. No "bump" or protrusions were appreciated on physical examination. Patient has no history of abdominal surgical history. Labs were obtained. Good renal function. CT of abdomen with contrast was obtained shows no acute deformities in the region of tenderness. Patient was given analgesia. On Reevaluation, patient reports improvement in symptoms. Patient advised to follow-up with primary care. Return parameters were thoroughly discussed with patient was under standing agreeable. Case discussed with physician. - Lab Data Result diagrams: 10/05/19 20:15 10/05/19 20:15 Lab Results 10/05/19 10/05/19 10/05/19 Range/Units 20:15 20:15 20:15 WBC 10.4 (3.8-10.6) k/uL RBC 4.80 (4.30-5.90) m/uL Hgb 15.7 (13.0-17.5) gm/dL Hct 46.4 (39.0-53.0) % MCV 96.7 (80.0-100.0) fL MCH 32.6 (25.0-35.0) pg MCHC 33.7 (31.0-37.0) g/dL RDW 12.2 (11.5-15.5) % Plt Count 329 (150-450) k/uL Neutrophils % 55 % Lymphocytes % 35 % Monocytes % 5 % Eosinophils % 3 % Basophils % 0 % Neutrophils # 5.7 (1.3-7.7) k/uL Lymphocytes # 3.7 (1.0-4.8) k/uL Monocytes # 0.5 (0-1.0) k/uL Eosinophils # 0.3 (0-0.7) k/uL Basophils # 0.0 (0-0.2) k/uL Sodium 141 (137-145) mmol/L Potassium 3.4 L (3.5-5.1) mmol/L Chloride 106 (98-107) mmol/L Carbon Dioxide 25 (22-30) mmol/L Anion Gap 10 mmol/L BUN 18 (9-20) mg/dL Creatinine 0.79 (0.66-1.25) mg/dL Est GFR (CKD-EPI)AfAm >90 (>60 ml/min/1.73 sqM) Est GFR (CKD-EPI)NonAf >90 (>60 ml/min/1.73 sqM) Glucose 116 H (74-99) mg/dL Plasma Lactic Acid Kenny 1.5 (0.7-2.0) mmol/L Calcium 9.4 (8.4-10.2) mg/dL Total Bilirubin 0.4 (0.2-1.3) mg/dL AST 24 (17-59) U/L ALT 14 (4-49) U/L Alkaline Phosphatase 41 (38-126) U/L Total Protein 7.1 (6.3-8.2) g/dL Albumin 4.4 (3.5-5.0) g/dL Disposition Clinical Impression: Abdominal pain Disposition: HOME SELF-CARE Condition: Stable Instructions (If sedation given, give patient instructions): Abdominal Pain (ED) Additional Instructions: Follow-up with primary care. Return to emergency department if symptoms worsen. Is patient prescribed a controlled substance at d/c from ED?: No Referrals: None,Stated [Primary Care Provider] - 1-2 days Time of Disposition: 21:25
[2019-10-05 20:26] LABS: Basophils % (A) 0 %; Eosinophils # (A) 0.3 k/uL (0-0.7); Eosinophils % (A) 3 %; HCT 46.4 % (39.0-53.0); HGB 15.7 gm/dL (13.0-17.5); Lymphocytes # (A) 3.7 k/uL (1.0-4.8); Lymphocytes % (A) 35 %; MCH 32.6 pg (25.0-35.0); MCHC 33.7 g/dL (31.0-37.0); MCV 96.7 fL (80.0-100.0); Mean Platelet Volume 7.2; Monocytes # (A) 0.5 k/uL (0-1.0); Monocytes % (A) 5 %; Neutrophils # (A) 5.7 k/uL (1.3-7.7); Neutrophils % (A) 55 %; Platelet Count 329 k/uL (150-450); RDW 12.2 % (11.5-15.5); WBC 10.4 k/uL (3.8-10.6)
[2019-10-05 20:37] LABS: ALT 14 U/L (4-49); AST 24 U/L (17-59); African American GFR (CKD) >90 (>60 ml/min/1.73 sqM); Albumin 4.4 g/dL (3.5-5.0); Alkaline Phosphatase 41 U/L (38-126); Anion Gap 10 mmol/L; Blood Urea Nitrogen 18 mg/dL (9-20); Calcium 9.4 mg/dL (8.4-10.2); Carbon Dioxide 25 mmol/L (22-30); Chloride 106 mmol/L (98-107); Glucose 116 mg/dL (74-99); Non-African American GFR(CKD) >90 (>60 ml/min/1.73 sqM); Potassium 3.4 mmol/L (3.5-5.1); Sodium 141 mmol/L (137-145); Total Bilirubin 0.4 mg/dL (0.2-1.3); Total Protein 7.1 g/dL (6.3-8.2)
--- NOTE | 2019-10-05 21:04 | CT ---
EXAMINATION TYPE: CT abdomen pelvis w con DATE OF EXAM: 10/05/2019 COMPARISON: None HISTORY: upper abdominal pain CT DLP: 1243 mGycm Automated exposure control for dose reduction was used. CONTRAST: Performed with IV Contrast, patient injected with 100 mL of Isovue 300. Multiple axial sections were obtained from the diaphragm to the floor the pelvis with intravenous con trast. Lung bases are clear. There is no pleural effusion. Heart size is normal. There is no pericardial eff usion. Liver spleen stomach pancreas gallbladder appear normal. Bile ducts are not dilated. There is no adrenal mass. Kidneys show satisfactory contrast opacification. There is no hydronephrosi s. Bladder distends smoothly. There is no inguinal hernia. There is no free fluid in the pelvis. Ther e is no mesenteric edema. There is no ascites or free air. Appendix is medial and posterior appears n ormal. There is no evidence of a bowel obstruction. Lumbar spine is intact. Bony pelvis appears intac t. There is vacuum disc at L5-S1. IMPRESSION: Normal appendix. Normal CT scan abdomen and pelvis.
[2019-10-05 21:41] VITALS: BP 118/71; PULSE 64; TEMP 98.1
== END 2019-10-05 21:39 | disposition home or self-care (01) ==
LOC: EC 19:41
DX: R10.9 Unspecified abdominal pain (principal); R06.02 Shortness of breath; J44.9 Chronic obstructive pulmonary disease, unspecified; G40.909 Epilepsy, unspecified, not intractable, without status epilepticus; F32.9 Major depressive disorder, single episode, unspecified; F17.200 Nicotine dependence, unspecified, uncomplicated; Z88.6 Allergy status to analgesic agent; Z91.048 Other nonmedicinal substance allergy status; Z79.51 Long term (current) use of inhaled steroids; Z79.899 Other long term (current) drug therapy; Z96.659 Presence of unspecified artificial knee joint
CPT/HCPCS: 36415; 80053; 83605; 85025; 74177; 99284; 96374; J2270; Q9967

== ENCOUNTER 2020-04-20 17:36 | Emergency (ER) | payer OTHER ==
[2020-04-20] MEDS ORDERED: LIDOCAINE 1% INJ 10MG/ML (20 ML MDV) SQ ONE (18:28)
[2020-04-20] MEDS ORDERED: MORPHINE SULFATE 4 MG/ML SYRINGE IM STA (18:45)
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
--- NOTE | 2020-04-20 20:26 | XR ---
EXAMINATION TYPE: XR Hip RT and AP Pelvis DATE OF EXAM: 04/20/2020 COMPARISON: 09/02/2017 HISTORY: Hip pain. Fall. TECHNIQUE: 3 views FINDINGS: Pelvic ring is intact. Proximal right femur and hip joint appear normal. There is no sign o f hip dysplasia. Hip joint spaces are normal. There is curvilinear density over the lateral aspect of the left femoral head. This could be some calcification of the joint capsule. IMPRESSION: No fracture seen. Normal right hip. Possible calcification of the left hip joint capsule which is a change compared to old exam.
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
[2020-04-20] MEDS ORDERED: ACET/COD 300 MG/30 MG STARTER PACK 6 TAB BTL PO STA (21:15)
[2020-04-20 21:57] VITALS: BP 130/94; PULSE 70; RESP 16; TEMP 98.5
== END 2020-04-20 21:57 | disposition home or self-care (01) ==
LOC: EC 17:36
DX: S09.90XA Unspecified injury of head, initial encounter (principal); M25.551 Pain in right hip; J44.9 Chronic obstructive pulmonary disease, unspecified; E11.9 Type 2 diabetes mellitus without complications; Z79.51 Long term (current) use of inhaled steroids; Z79.899 Other long term (current) drug therapy; Z88.6 Allergy status to analgesic agent; Z91.048 Other nonmedicinal substance allergy status; V18.4XXA Pedal cycle driver injured in noncollision transport accident in traffic accident, initial encounter; Y93.55 Activity, bike riding; Y92.410 Unspecified street and highway as the place of occurrence of the external cause
CPT/HCPCS: 73502; 72125; 70450; 99284; 96372; J2270

== ENCOUNTER 2021-01-15 15:15 | Emergency (ER) | payer OTHER ==
[2021-01-15 15:22] VITALS: BP 120/82
--- NOTE | 2021-01-15 15:22 | ED ---
General Adult HPI - General Stated complaint: Chest Pain Time Seen by Provider: 01/15/21 15:17 Source: patient, RN notes reviewed, old records reviewed - History of Present Illness Initial comments: 30-year-old male presenting for evaluation of palpitations. His been ongoing for several days. He did note a discomfort in his chest which began this morning. No previous history of heart issues. He denies any radiation of his pain complaint. No shortness of breath. No lower extremity pain or swelling. Patient was transported by EMS, stable vital signs. Denies alcohol or illicit drugs. - Related Data Home Medications Medication Instructions Recorded Confirmed No Known Home Medications 01/15/21 01/15/21 Allergies Allergy/AdvReac Type Severity Reaction Status Date / Time blue dye Allergy Rash/Hives Verified 01/15/21 16:14 ibuprofen [From Motrin] AdvReac Nausea & Verified 01/15/21 16:14 Vomiting & Diarrhea Review of Systems ROS Statement: Those systems with pertinent positive or pertinent negative responses have been documented in the HPI. ROS Other: All systems not noted in ROS Statement are negative. Past Medical History Past Medical History: Asthma, COPD, Diabetes Mellitus, Seizure Disorder Additional Past Medical History / Comment(s): Degenerative Disk, uses a walker r/t back History of Any Multi-Drug Resistant Organisms: None Reported Past Surgical History: Joint Replacement, Orthopedic Surgery Additional Past Surgical History / Comment(s): knee Past Psychological History: ADD/ADHD, Anxiety, Depression Smoking Status: Never smoker Past Alcohol Use History: Occasional Past Drug Use History: Marijuana General Exam General appearance: alert, in no apparent distress Head exam: Present: atraumatic, normocephalic Eye exam: Present: normal appearance, PERRL ENT exam: Present: normal exam Neck exam: Present: normal inspection. Absent: tenderness, meningismus Respiratory exam: Present: normal lung sounds bilaterally, chest wall tenderness (Left anterior). Absent: respiratory distress, wheezes Cardiovascular Exam: Present: regular rate, normal rhythm GI/Abdominal exam: Present: soft. Absent: distended, tenderness Extremities exam: Present: normal inspection, normal capillary refill. Absent: pedal edema Back exam: Present: normal inspection, full ROM Neurological exam: Present: alert, oriented X3, CN II-XII intact. Absent: motor sensory deficit Psychiatric exam: Present: normal affect, normal mood Skin exam: Present: warm, dry, intact. Absent: cyanosis, diaphoretic Course Vital Signs 01/15/21 15:18 Temperature 98.3 F Pulse Rate 73 Respiratory 18 Rate Blood Pressure 120/82 O2 Sat by Pulse 99 Oximetry EKG Findings - EKG Comments: EKG Findings:: EKG: Normal sinus rhythm with sinus arrhythmia, rate of 65, ID interval 1:30, QRS duration 94, QTC 420, no ST segment elevation, PVC Medical Decision Making - Medical Decision Making 30-year-old male with palpitations, mild chest discomfort. Patient well- appearing, stable vitals. He has had symptoms for the past several days. EKG is sinus rhythm no ST segment elevation. Chest x-rays negative for acute cardiopulmonary disease. He has normal CBC, normal CMP, negative troponin normal electrolytes. I did reevaluate patient is resting, fluid, he states his palpitations have improved. Patient given strict return parameters, will return with any worsening or changing symptoms. - Lab Data Result diagrams: 01/15/21 15:47 01/15/21 15:47 Lab Results 01/15/21 01/15/21 01/15/21 Range/Units 15:47 15:47 15:47 WBC 10.5 (3.8-10.6) k/uL RBC 4.68 (4.30-5.90) m/uL Hgb 15.8 (13.0-17.5) gm/dL Hct 45.1 (39.0-53.0) % MCV 96.3 (80.0-100.0) fL MCH 33.7 (25.0-35.0) pg MCHC 35.0 (31.0-37.0) g/dL RDW 12.0 (11.5-15.5) % Plt Count 312 (150-450) k/uL MPV 6.5 Neutrophils % 60 % Lymphocytes % 30 % Monocytes % 6 % Eosinophils % 2 % Basophils % 1 % Neutrophils # 6.3 (1.3-7.7) k/uL Lymphocytes # 3.2 (1.0-4.8) k/uL Monocytes # 0.6 (0-1.0) k/uL Eosinophils # 0.3 (0-0.7) k/uL Basophils # 0.1 (0-0.2) k/uL PT 10.7 (9.0-12.0) sec INR 1.0 (<1.2) APTT 24.9 (22.0-30.0) sec Sodium 141 (137-145) mmol/L Potassium 3.7 (3.5-5.1) mmol/L Chloride 107 (98-107) mmol/L Carbon Dioxide 25 (22-30) mmol/L Anion Gap 9 mmol/L BUN 15 (9-20) mg/dL Creatinine 0.87 (0.66-1.25) mg/dL Est GFR (CKD-EPI)AfAm >90 (>60 ml/min/1.73 sqM) Est GFR (CKD-EPI)NonAf >90 (>60 ml/min/1.73 sqM) Glucose 89 (74-99) mg/dL Calcium 9.1 (8.4-10.2) mg/dL Magnesium 1.8 (1.6-2.3) mg/dL Total Bilirubin 0.5 (0.2-1.3) mg/dL AST 24 (17-59) U/L ALT 15 (4-49) U/L Alkaline Phosphatase 47 (38-126) U/L Troponin I (0.000-0.034) ng/mL Total Protein 6.9 (6.3-8.2) g/dL Albumin 4.4 (3.5-5.0) g/dL 01/15/21 Range/Units 15:47 WBC (3.8-10.6) k/uL RBC (4.30-5.90) m/uL Hgb (13.0-17.5) gm/dL Hct (39.0-53.0) % MCV (80.0-100.0) fL MCH (25.0-35.0) pg MCHC (31.0-37.0) g/dL RDW (11.5-15.5) % Plt Count (150-450) k/uL MPV Neutrophils % % Lymphocytes % % Monocytes % % Eosinophils % % Basophils % % Neutrophils # (1.3-7.7) k/uL Lymphocytes # (1.0-4.8) k/uL Monocytes # (0-1.0) k/uL Eosinophils # (0-0.7) k/uL Basophils # (0-0.2) k/uL PT (9.0-12.0) sec INR (<1.2) APTT (22.0-30.0) sec Sodium (137-145) mmol/L Potassium (3.5-5.1) mmol/L Chloride (98-107) mmol/L Carbon Dioxide (22-30) mmol/L Anion Gap mmol/L BUN (9-20) mg/dL Creatinine (0.66-1.25) mg/dL Est GFR (CKD-EPI)AfAm (>60 ml/min/1.73 sqM) Est GFR (CKD-EPI)NonAf (>60 ml/min/1.73 sqM) Glucose (74-99) mg/dL Calcium (8.4-10.2) mg/dL Magnesium (1.6-2.3) mg/dL Total Bilirubin (0.2-1.3) mg/dL AST (17-59) U/L ALT (4-49) U/L Alkaline Phosphatase (38-126) U/L Troponin I <0.012 (0.000-0.034) ng/mL Total Protein (6.3-8.2) g/dL Albumin (3.5-5.0) g/dL Disposition Clinical Impression: Chest pain, Palpitations Disposition: HOME SELF-CARE Condition: Good Instructions (If sedation given, give patient instructions): Chest Pain (ED), Heart Palpitations (ED) Is patient prescribed a controlled substance at d/c from ED?: No Referrals: None,Stated [Primary Care Provider] - 1-2 days Tommy Echevarria MD [STAFF PHYSICIAN] - 1-2 days Zhang Barbosa [STAFF PHYSICIAN] - 1-2 days Time of Disposition: 16:32
[2021-01-15 15:55] LABS: Basophils # (A) 0.1 k/uL (0-0.2); Basophils % (A) 1 %; Eosinophils # (A) 0.3 k/uL (0-0.7); Eosinophils % (A) 2 %; HCT 45.1 % (39.0-53.0); HGB 15.8 gm/dL (13.0-17.5); Lymphocytes # (A) 3.2 k/uL (1.0-4.8); Lymphocytes % (A) 30 %; MCH 33.7 pg (25.0-35.0); MCV 96.3 fL (80.0-100.0); Mean Platelet Volume 6.5; Monocytes # (A) 0.6 k/uL (0-1.0); Monocytes % (A) 6 %; Neutrophils # (A) 6.3 k/uL (1.3-7.7); Neutrophils % (A) 60 %; Platelet Count 312 k/uL (150-450); RBC 4.68 m/uL (4.30-5.90); WBC 10.5 k/uL (3.8-10.6)
[2021-01-15 16:04] LABS: Partial Thromboplastin Time 24.9 sec (22.0-30.0); Prothrombin Time 10.7 sec (9.0-12.0)
--- NOTE | 2021-01-15 16:04 | XR ---
EXAMINATION TYPE: XR chest 2V DATE OF EXAM: 01/15/2021 COMPARISON: 09/02/2017 HISTORY: chest pain TECHNIQUE: Frontal and lateral views of the chest are obtained. FINDINGS: There is no focal air space opacity, pleural effusion, or pneumothorax seen. The cardiac silhouette size is within normal limits. The osseous structures are intact. IMPRESSION: No acute cardiopulmonary process.
[2021-01-15 16:15] LABS: ALT 15 U/L (4-49); AST 24 U/L (17-59); African American GFR (CKD) >90 (>60 ml/min/1.73 sqM); Albumin 4.4 g/dL (3.5-5.0); Alkaline Phosphatase 47 U/L (38-126); Anion Gap 9 mmol/L; Blood Urea Nitrogen 15 mg/dL (9-20); Calcium 9.1 mg/dL (8.4-10.2); Carbon Dioxide 25 mmol/L (22-30); Chloride 107 mmol/L (98-107); Glucose 89 mg/dL (74-99); Magnesium 1.8 mg/dL (1.6-2.3); Non-African American GFR(CKD) >90 (>60 ml/min/1.73 sqM); Potassium 3.7 mmol/L (3.5-5.1); Sodium 141 mmol/L (137-145); Total Bilirubin 0.5 mg/dL (0.2-1.3); Total Protein 6.9 g/dL (6.3-8.2)
[2021-01-15 16:45] VITALS: PULSE 54; RESP 16; TEMP 98
== END 2021-01-15 16:40 | disposition home or self-care (01) ==
LOC: EC 15:15
DX: R07.89 Other chest pain (principal); R00.2 Palpitations; J44.9 Chronic obstructive pulmonary disease, unspecified; E11.9 Type 2 diabetes mellitus without complications; G40.909 Epilepsy, unspecified, not intractable, without status epilepticus; F32.9 Major depressive disorder, single episode, unspecified; F41.9 Anxiety disorder, unspecified; F90.9 Attention-deficit hyperactivity disorder, unspecified type; F12.90 Cannabis use, unspecified, uncomplicated
CPT/HCPCS: 36415; 71046; 80053; 83735; 84484; 85025; 85610; 85730; 93005; 99285

== ENCOUNTER 2021-04-14 23:12 | Emergency (ER) | payer OTHER ==
[2021-04-14] MEDS ORDERED: SODIUM CHLORIDE 0.9% 1,000 ML IV STA (23:39)
--- NOTE | 2021-04-15 00:05 | XR ---
EXAMINATION TYPE: XR chest 2V DATE OF EXAM: 04/14/2021 COMPARISON: 01/15/2021 HISTORY: Chest pain TECHNIQUE: 2 views FINDINGS: Heart and mediastinum are normal. Lungs are clear. Diaphragm is normal. Bony thorax is inta ct. There are chest leads. IMPRESSION: Normal chest. No change.
[2021-04-15 00:30] LABS: Basophils % (A) 0 %; Eosinophils # (A) 0.4 k/uL (0-0.7); Eosinophils % (A) 3 %; HCT 46.6 % (39.0-53.0); HGB 16.2 gm/dL (13.0-17.5); Lymphocytes % (A) 36 %; MCH 34.3 pg (25.0-35.0); MCHC 34.9 g/dL (31.0-37.0); MCV 98.4 fL (80.0-100.0); Mean Platelet Volume 7.5; Monocytes # (A) 0.6 k/uL (0-1.0); Monocytes % (A) 6 %; Neutrophils % (A) 53 %; Platelet Count 340 k/uL (150-450); RBC 4.73 m/uL (4.30-5.90); RDW 12.1 % (11.5-15.5); WBC 11.2 k/uL (3.8-10.6)
[2021-04-15 00:34] VITALS: RESP 16
[2021-04-15 00:44] LABS: ALT 14 U/L (4-49); AST 24 U/L (17-59); African American GFR (CKD) >90 (>60 ml/min/1.73 sqM); Albumin 4.2 g/dL (3.5-5.0); Alkaline Phosphatase 43 U/L (38-126); Anion Gap 10 mmol/L; Blood Urea Nitrogen 18 mg/dL (9-20); Calcium 9.3 mg/dL (8.4-10.2); Carbon Dioxide 22 mmol/L (22-30); Chloride 107 mmol/L (98-107); Glucose 136 mg/dL (74-99); Lipase 175 U/L (23-300); Magnesium 1.8 mg/dL (1.6-2.3); Non-African American GFR(CKD) >90 (>60 ml/min/1.73 sqM); Potassium 3.8 mmol/L (3.5-5.1); Sodium 139 mmol/L (137-145); Total Bilirubin 0.4 mg/dL (0.2-1.3); Total Protein 6.9 g/dL (6.3-8.2)
[2021-04-15 01:28] LABS: Partial Thromboplastin Time 24.5 sec (22.0-30.0); Prothrombin Time 10.3 sec (9.0-12.0)
--- NOTE | 2021-04-15 02:16 | ED ---
General Adult HPI - General Chief complaint: Chest Pain Stated complaint: Chest Pain Time Seen by Provider: 04/14/21 23:16 Source: EMS Mode of arrival: EMS Limitations: no limitations - History of Present Illness Initial comments: 30 year-old male patient presents to the emergency department for evaluation of chest pain, palpitations, and bloody stool. States symptoms have been going on for the last week. States he has had palpitations in the past and was evaluated in the ED for this. He has been unable to follow up with a PCP. He denies fever or chills. Reports intermittent cough and shortness of breath. Reports bloody stools 4-5 times per day for the last week. States he does feel dizzy and weak. States he is taking an aspirin a day. States he has abdominal pain in the mornings, resolves throughout the day. Patient denies any recent rash, nausea, vomiting, constipation, back pain, numbness, tingling, hematuria, dysuria, urinary urgency, urinary frequency, headache, visual changes, or any other complaints. - Related Data Home Medications Medication Instructions Recorded Confirmed No Known Home Medications 01/15/21 01/15/21 Allergies Allergy/AdvReac Type Severity Reaction Status Date / Time blue dye Allergy Rash/Hives Verified 01/15/21 16:14 ibuprofen [From Motrin] AdvReac Nausea & Verified 01/15/21 16:14 Vomiting & Diarrhea Review of Systems ROS Statement: Those systems with pertinent positive or pertinent negative responses have been documented in the HPI. ROS Other: All systems not noted in ROS Statement are negative. Past Medical History Past Medical History: Asthma, COPD, Diabetes Mellitus, Seizure Disorder Additional Past Medical History / Comment(s): Degenerative Disk, uses a walker r/t back History of Any Multi-Drug Resistant Organisms: None Reported Past Surgical History: Joint Replacement, Orthopedic Surgery Additional Past Surgical History / Comment(s): knee Past Psychological History: ADD/ADHD, Anxiety, Depression Smoking Status: Current every day smoker Past Alcohol Use History: None Reported Past Drug Use History: Marijuana General Exam Limitations: no limitations General appearance: alert, in no apparent distress, other (This is a well dev eloped, well nourished adult male patient in no acute distress. V/S upon presentation are temp 98.5, pulse 82, resp 18, BP 124/96, Pulse ox 99% room air.) Eye exam: Present: normal appearance, PERRL, EOMI. Absent: scleral icterus, conjunctival injection, periorbital swelling ENT exam: Present: normal exam, normal oropharynx, mucous membranes moist Respiratory exam: Present: normal lung sounds bilaterally. Absent: respiratory distress, wheezes, rales, rhonchi, stridor Cardiovascular Exam: Present: regular rate, normal rhythm, normal heart sounds. Absent: systolic murmur, diastolic murmur, rubs, gallop, clicks GI/Abdominal exam: Present: soft, normal bowel sounds. Absent: distended, tenderness, guarding, rebound, rigid Rectal exam: Present: other (no stool in the rectal vault, unable to obtain sample) Neurological exam: Present: alert, oriented X3, CN II-XII intact Psychiatric exam: Present: normal affect, normal mood Skin exam: Present: warm, dry, intact, normal color. Absent: rash Course Vital Signs 04/14/21 04/15/21 23:13 00:33 Temperature 98.5 F Pulse Rate 82 67 Respiratory 18 16 Rate Blood Pressure 124/96 120/76 O2 Sat by Pulse 99 97 Oximetry EKG Findings - EKG Comments: EKG Findings:: EKG obtained at 2315 shows normal sinus rhythm with sinus arrhythmia with incomplete right bundle branch block. Ventricular rate is 71, MA interval 130, QRS duration 92, QT 386, QTC 419. No evidence of ST elevation or depression. Medical Decision Making - Medical Decision Making 30-year-old male patient presents to the emergency department today for evaluation of chest pain, palpitations, dizziness, weakness or also reports 3-4 episodes of bloody bowel movements per day. Physical examination is unremarkable. Lungs are clear to auscultation with good air movement. Heart sounds are normal. Abdomen is soft and nontender. I did attempt to obtain stool for occult blood, rectal vault was empty and was unable to obtain a sample after 2 tries. Labs reviewed and were unremarkable. Hemoglobin is normal. Tested negative for COVID-19. EKG was unremarkable. He was on cardiac telemetry monitoring throughout his visit and he had no evidence for arrhythmia or ectopy. I did discuss findings and results with him. He'll be discharged follow up with primary care physician for recheck in 1-2 days. Return parameters were discussed in detail. He verbalizes understanding and agrees with this plan. Case discussed in my attending Dr. Schwartz. - Lab Data Result diagrams: 04/15/21 00:24 04/15/21 00:24 Lab Results 04/15/21 04/15/21 04/15/21 Range/Units 00:24 00:24 00:24 WBC 11.2 H (3.8-10.6) k/uL RBC 4.73 (4.30-5.90) m/uL Hgb 16.2 (13.0-17.5) gm/dL Hct 46.6 (39.0-53.0) % MCV 98.4 (80.0-100.0) fL MCH 34.3 (25.0-35.0) pg MCHC 34.9 (31.0-37.0) g/dL RDW 12.1 (11.5-15.5) % Plt Count 340 (150-450) k/uL MPV 7.5 Neutrophils % 53 % Lymphocytes % 36 % Monocytes % 6 % Eosinophils % 3 % Basophils % 0 % Neutrophils # 6.0 (1.3-7.7) k/uL Lymphocytes # 4.0 (1.0-4.8) k/uL Monocytes # 0.6 (0-1.0) k/uL Eosinophils # 0.4 (0-0.7) k/uL Basophils # 0.0 (0-0.2) k/uL PT 10.3 (9.0-12.0) sec INR 1.0 (<1.2) APTT 24.5 (22.0-30.0) sec D-Dimer <0.17 (<0.60) mg/L FEU Sodium 139 (137-145) mmol/L Potassium 3.8 (3.5-5.1) mmol/L Chloride 107 (98-107) mmol/L Carbon Dioxide 22 (22-30) mmol/L Anion Gap 10 mmol/L BUN 18 (9-20) mg/dL Creatinine 0.77 (0.66-1.25) mg/dL Est GFR (CKD-EPI)AfAm >90 (>60 ml/min/1.73 sqM) Est GFR (CKD-EPI)NonAf >90 (>60 ml/min/1.73 sqM) Glucose 136 H (74-99) mg/dL Calcium 9.3 (8.4-10.2) mg/dL Magnesium 1.8 (1.6-2.3) mg/dL Total Bilirubin 0.4 (0.2-1.3) mg/dL AST 24 (17-59) U/L ALT 14 (4-49) U/L Alkaline Phosphatase 43 (38-126) U/L Troponin I (0.000-0.034) ng/mL Total Protein 6.9 (6.3-8.2) g/dL Albumin 4.2 (3.5-5.0) g/dL Lipase 175 (23-300) U/L TSH 3.240 (0.465-4.680) mIU/L Urine Opiates Screen (NotDetected) Ur Oxycodone Screen (NotDetected) Urine Methadone Screen (NotDetected) Ur Propoxyphene Screen (NotDetected) Ur Barbiturates Screen (NotDetected) U Tricyclic Antidepress (NotDetected) Ur Phencyclidine Scrn (NotDetected) Ur Amphetamines Screen (NotDetected) U Methamphetamines Scrn (NotDetected) U Benzodiazepines Scrn (NotDetected) Urine Cocaine Screen (NotDetected) U Marijuana (THC) Screen (NotDetected) Coronavirus (PCR) (Not Detectd) 04/15/21 04/15/21 04/15/21 Range/Units 00:24 02:07 02:07 WBC (3.8-10.6) k/uL RBC (4.30-5.90) m/uL Hgb (13.0-17.5) gm/dL Hct (39.0-53.0) % MCV (80.0-100.0) fL MCH (25.0-35.0) pg MCHC (31.0-37.0) g/dL RDW (11.5-15.5) % Plt Count (150-450) k/uL MPV Neutrophils % % Lymphocytes % % Monocytes % % Eosinophils % % Basophils % % Neutrophils # (1.3-7.7) k/uL Lymphocytes # (1.0-4.8) k/uL Monocytes # (0-1.0) k/uL Eosinophils # (0-0.7) k/uL Basophils # (0-0.2) k/uL PT (9.0-12.0) sec INR (<1.2) APTT (22.0-30.0) sec D-Dimer (<0.60) mg/L FEU Sodium (137-145) mmol/L Potassium (3.5-5.1) mmol/L Chloride (98-107) mmol/L Carbon Dioxide (22-30) mmol/L Anion Gap mmol/L BUN (9-20) mg/dL Creatinine (0.66-1.25) mg/dL Est GFR (CKD-EPI)AfAm (>60 ml/min/1.73 sqM) Est GFR (CKD-EPI)NonAf (>60 ml/min/1.73 sqM) Glucose (74-99) mg/dL Calcium (8.4-10.2) mg/dL Magnesium (1.6-2.3) mg/dL Total Bilirubin (0.2-1.3) mg/dL AST (17-59) U/L ALT (4-49) U/L Alkaline Phosphatase (38-126) U/L Troponin I <0.012 (0.000-0.034) ng/mL Total Protein (6.3-8.2) g/dL Albumin (3.5-5.0) g/dL Lipase (23-300) U/L TSH (0.465-4.680) mIU/L Urine Opiates Screen Not Detected (NotDetected) Ur Oxycodone Screen Not Detected (NotDetected) Urine Methadone Screen Not Detected (NotDetected) Ur Propoxyphene Screen Not Detected (NotDetected) Ur Barbiturates Screen Not Detected (NotDetected) U Tricyclic Antidepress Not Detected (NotDetected) Ur Phencyclidine Scrn Not Detected (NotDetected) Ur Amphetamines Screen Not Detected (NotDetected) U Methamphetamines Scrn Not Detected (NotDetected) U Benzodiazepines Scrn Not Detected (NotDetected) Urine Cocaine Screen Not Detected (NotDetected) U Marijuana (THC) Screen Detected H (NotDetected) Coronavirus (PCR) Not Detected (Not Detectd) - Radiology Data Radiology results: report reviewed, image reviewed Two-view x-ray of the chest is obtained. Report was reviewed in its entirety. Impression by Dr. See shows normal chest. No change. Disposition Clinical Impression: Chest pain, Palpitations Disposition: HOME SELF-CARE Condition: Good Instructions (If sedation given, give patient instructions): Chest Pain (ED), Heart Palpitations (ED) Additional Instructions: Increase fluids. Rest. Follow-up with your primary care physician for recheck in 1-2 days. Return to the emergency department for any new, worsening, or concerning symptoms. Is patient prescribed a controlled substance at d/c from ED?: No Referrals: None,Stated [Primary Care Provider] - 1-2 days Time of Disposition: 03:07
[2021-04-15 02:47] LABS: Barbiturate Screen,Urine Not Detected (NotDetected); Benzodiazepines Screen,Urine Not Detected (NotDetected); Cocaine Screen,Urine Not Detected (NotDetected); Methadone Screen, Urine Not Detected (NotDetected); Opiate Screen,Urine Not Detected (NotDetected); Oxycodone Screen, Urine Not Detected (NotDetected); Phencyclidine Screen,Urine Not Detected (NotDetected); Tricyclic Antidepressant,Urine Not Detected (NotDetected); Urn Cannabinoid Scrn Detected (NotDetected)
[2021-04-15 02:48] LABS: Amphetamine Screen,Urine Not Detected (NotDetected)
[2021-04-15 03:20] VITALS: BP 124/83; PULSE 71; TEMP 97.8
== END 2021-04-15 03:20 | disposition home or self-care (01) ==
LOC: EC 23:12
DX: R07.9 Chest pain, unspecified (principal); R00.2 Palpitations; J45.909 Unspecified asthma, uncomplicated; E11.9 Type 2 diabetes mellitus without complications; F41.9 Anxiety disorder, unspecified; F32.9 Major depressive disorder, single episode, unspecified; F90.9 Attention-deficit hyperactivity disorder, unspecified type; F17.200 Nicotine dependence, unspecified, uncomplicated; F12.90 Cannabis use, unspecified, uncomplicated; Z88.6 Allergy status to analgesic agent; Z20.822 Contact with and (suspected) exposure to COVID-19
CPT/HCPCS: 36415; 71046; 80053; 80306; 83690; 83735; 84443; 84484; 85025; 85379; 85610; 85730; 87635; 93005; 96360; 99285

== ENCOUNTER 2023-04-19 14:46 | Emergency (ER) | payer OTHER ==
[2023-04-19 14:54] VITALS: RESP 18
[2023-04-19] MEDS ORDERED: TOPICAL SKIN ADHESIVE 1 EACH AMP TOPICAL ONE (16:36)
--- NOTE | 2023-04-19 17:00 | ED ---
Wound/Laceration HPI - General Chief Complaint: Wound/Laceration Stated Complaint: foot laceration Time Seen by Provider: 04/19/23 16:09 Source: patient Mode of arrival: ambulatory Limitations: no limitations - History of Present Illness Initial Comments: 32-year-old male presenting with chief complaint of laceration. Patient was carrying a large mirror today and dropped on his foot. He now has a less than 1 cm laceration between the first and second digit on the right foot. Bleeding is well-controlled at this time. Last tetanus shot was 5 years ago. Full range of motion and sensation are intact. - Related Data Home Medications Medication Instructions Recorded Confirmed No Known Home Medications 01/15/21 01/15/21 Allergies Allergy/AdvReac Type Severity Reaction Status Date / Time blue dye Allergy Rash/Hives Verified 04/19/23 14:52 ibuprofen [From Motrin] AdvReac Nausea & Verified 04/19/23 14:52 Vomiting & Diarrhea Review of Systems ROS Statement: Those systems with pertinent positive or pertinent negative responses have been documented in the HPI. ROS Other: All systems not noted in ROS Statement are negative. Past Medical History Past Medical History: Asthma, COPD, Diabetes Mellitus, Seizure Disorder Additional Past Medical History / Comment(s): Degenerative Disk, uses a walker r/t back History of Any Multi-Drug Resistant Organisms: None Reported Past Surgical History: Joint Replacement, Orthopedic Surgery Additional Past Surgical History / Comment(s): knee Past Psychological History: ADD/ADHD, Anxiety, Depression Smoking Status: Current every day smoker Past Alcohol Use History: None Reported Past Drug Use History: Marijuana General Exam Limitations: no limitations General appearance: alert, in no apparent distress Head exam: Present: atraumatic, normocephalic, normal inspection Eye exam: Present: normal appearance, EOMI Neck exam: Present: normal inspection, full ROM Respiratory exam: Absent: respiratory distress Neurological exam: Present: alert, oriented X3, CN II-XII intact Psychiatric exam: Present: normal affect, normal mood Expanded Type of lesion: Present: laceration (Less than 1 cm laceration between the right sided first and second toes) Course Vital Signs 04/19/23 04/19/23 14:48 16:58 Temperature 98.8 F 98.5 F Pulse Rate 95 67 Respiratory 18 18 Rate Blood Pressure 121/81 115/80 O2 Sat by Pulse 96 99 Oximetry Procedures - Laceration Laceration #1 Consent Obtained: verbal consent Indication: laceration Site: foot Size (cm): 1 (Less than 1 cm) Description: linear Depth: simple, single layer Type of Sutures: other (exofin) Patient Tolerated Procedure: well Medical Decision Making - Medical Decision Making Was pt. sent in by a medical professional or institution ([facility], EP TECHNOLOGIST, urgent care, hospital, or group home...) When possible be specific @ -No Did you speak to anyone other than the patient for history (EMS, parent, family, police, friend...)? What history was obtained from this source @ -No Did you review nursing and triage notes (agree or disagree)? Why? @ -I reviewed and agree with nursing and triage notes Were old charts reviewed (outside hosp., previous admission, EMS record, old EKG, old radiological studies, urgent care reports/EKG's, group home records)? Report findings @ -No old charts were reviewed Differential Diagnosis (chest pain, altered mental status, abdominal pain women, abdominal pain men, vaginal bleeding, weakness, fever, dyspnea, syncope, headache, dizziness, GI bleed, back pain, seizure, CVA, palpatations, mental health, musculoskeletal)? @ -not applicable EKG interpreted by me (3pts min.). @ -As above X-rays interpreted by me (1pt min.). @ -None done CT interpreted by me (1pt min.). @ -None done U/S interpreted by me (1pt. min.). @ -None done What testing was considered but not performed or refused? (CT, X-rays, U/S, labs)? Why? @ -None What meds were considered but not given or refused? Why? @ -None Did you discuss the management of the patient with other professionals (professionals i.e. [facility], EP TECHNOLOGIST, lab, RT, psych nurse, healthcare social worker, atmospheric scientist, teacher, chief customer officer, human services case manager)? Give summary @ -No Was smoking cessation discussed for >3mins.? @ -No Was critical care preformed (if so, how long)? @ -No Were there social determinants of health that impacted care today? How? (Homelessness, low income, unemployed, alcoholism, drug addiction, transpo rtation, low edu. Level, literacy, decrease access to med. care, halfway, rehab)? @ -No Was there de-escalation of care discussed even if they declined (Discuss DNR or withdrawal of care, Hospice)? DNR status @ -No What co-morbidities impacted this encounter? (DM, HTN, Smoking, COPD, CAD, Cancer, CVA, ARF, Chemo, Hep., AIDS, mental health diagnosis, sleep apnea, morbid obesity)? @ -None Was patient admitted / discharged? Hospital course, mention meds given and route, prescriptions, significant lab abnormalities, going to OR and other pertinent info. @ -32-year-old male presenting chief complaint of laceration. Patient dropped a mirror on his foot earlier today and now has a less than 1 cm laceration between the right sided first and second toes. Wound is repaired using skin adhesive. Patient is educated on wound care and signs of infection. Follow-up with PCP. Report back to ER with any new or worsening symptoms. Discussed return parameters and answered all questions. Patient conveyed verbal understanding and agreed to the plan. I discussed this case in detail with my attending Dr. Moody Undiagnosed new problem with uncertain prognosis? @ -No Drug Therapy requiring intensive monitoring for toxicity (Heparin, Nitro, Insulin, Cardizem)? @ -No Were any procedures done? @ -No Diagnosis/symptom? @ -Laceration Acute, or Chronic, or Acute on Chronic? @ -acute Uncomplicated (without systemic symptoms) or Complicated (systemic symptoms)? @ -Uncomplicated Side effects of treatment? @ -No Exacerbation, Progression, or Severe Exacerbation? @ -No Poses a threat to life or bodily function? How? (Chest pain, USA, MA, pneumonia, PE, COPD, DKA, ARF, appy, cholecystitis, CVA, Diverticulitis, Homicidal, Suicidal, threat to staff... and all critical care pts) @ -No Disposition Clinical Impression: Laceration Disposition: HOME SELF-CARE Condition: Good Instructions (If sedation given, give patient instructions): Laceration (ED), Skin Adhesive Care (ED) Additional Instructions: Follow-up with PCP. Report back to ER with any new or worsening symptoms. Monitor for signs of infection, including but not limited to redness, swelling, pain, discharge, fever, chills. Keep the wound clean and dry and covered. Avoid fully submerging the wound. Clean with soap and water. Do not apply Neosporin or other ointment-based products as this will break down the skin adhesive. Is patient prescribed a controlled substance at d/c from ED?: No Referrals: None,Stated [Primary Care Provider] - 1-2 days Time of Disposition: 17:00
[2023-04-19 17:02] VITALS: BP 115/80; PULSE 67; TEMP 98.5
== END 2023-04-19 17:12 | disposition home or self-care (01) ==
LOC: EC 14:46
DX: S91.311A Laceration without foreign body, right foot, initial encounter (principal); J44.9 Chronic obstructive pulmonary disease, unspecified; E11.9 Type 2 diabetes mellitus without complications; F17.200 Nicotine dependence, unspecified, uncomplicated; F12.90 Cannabis use, unspecified, uncomplicated; Z91.041 Radiographic dye allergy status; Z88.6 Allergy status to analgesic agent; Z86.59 Personal history of other mental and behavioral disorders; X50.0XXA Overexertion from strenuous movement or load, initial encounter
CPT/HCPCS: 12001; 99283